=== PATIENT | female | born 1995 | race Caucasian/White ===

== ENCOUNTER → 2019-07-17 10:05 | Outpatient (BNVA) | payer OTHER, SELFPAY | PROVIDERS: Family Provider Family Medicine; PCP Family Medicine; Visit Provider Nurse Practitioner Women's Health | DX: Z11.3 Encounter for screening for infections with a predominantly sexual mode of transmission (principal); A54.9 Gonococcal infection, unspecified; Z31.9 Encounter for procreative management, unspecified | CPT/HCPCS: 87491; 87591; 87661 ==

== ENCOUNTER → 2019-10-01 08:51 | Outpatient (BNVA) | payer OTHER, SELFPAY | PROVIDERS: Family Provider Family Medicine; PCP Family Medicine | DX: Z32.01 Encounter for pregnancy test, result positive (principal) | CPT/HCPCS: 81025 ==

== ENCOUNTER 2019-10-15 10:50 | Emergency (ER) | payer OTHER, SELFPAY ==
[2019-10-15] VITALS (7 sets, daily range): BP systolic 96–125; BP diastolic 40–63; PULSE 60–82; RESP 16–18; TEMP 37.2; O2SAT 98–100; BMI 19.3
--- NOTE | 2019-10-15 11:39 | W.ED.DIZZY ---
HPI - Dizziness General: Chief Complaint: Dizziness Stated Complaint: DIZZY N/V Time Seen by Provider: 10/15/19 11:30 History of Present Illness: HPI Narrative: Patient is a 7-week 24-year-old female that comes to the ED with dizziness, nausea/vomiting. Patient says she is been having nausea and vomiting for the past week. She is having trouble keeping food and fluids down. She denies any vaginal discharge or bleeding. She has some mild abdominal cramping but no other abdominal pain. She took a dose of promethazine this morning and after that she started getting dizzy. Denies any fever, chills, chest pain, shortness of breath, dysuria, hematuria or diarrhea. Patient does endorse some mild constipation. Associated symptoms: Reports nausea and vomiting; Denies chest pain, chills, headache(s), nasal congestion or palpitations Associated neuro symptoms: Deny numbness in extremities Review of Systems Const: Denies: fever(s), chills or fatigue Eyes: Denies: change in vision or eye discomfort ENMT: Denies: throat pain, odynophagia, nasal discharge or nasal congestion Card: Denies: chest pain, palpitations, edema, swelling of feet/ankles, dyspnea on exertion or orthopnea Resp: Denies: dyspnea, productive cough or non-productive cough GI: Reports: nausea, vomiting and constipation; Denies: abdominal pain, diarrhea or hematochezia : Reports: pelvic pain (mild cramps); Denies: flank pain, dysuria or hematuria Musc: Denies: neck pain, back pain or extremity swelling Skin/Breast: Denies: rash or new lesions Neuro: Reports: dizziness; Denies: headache(s), numbness in extremities or weakness in extremities [facility] ED PFSH: Medical History Gonorrhea No pertinent past medical history Surgical History H/O dilation and curettage (05/12/17) Missed with retained products after Cytotec. D&C performed by Dr. Pastrana at [facility] in [place], [place]. Pathology--> products of conception Family History Grandmother Diabetes Maternal grandmother Denies family history of Colon cancer Ovarian cancer Heart disease Hyperlipidemia Breast cancer Family history of thyroid problem Hypertension Uterine cancer Stroke Social History Smoking and tobacco status: never smoked Alcohol intake: never Female Reproductive History: Date of last menstrual period: 08/26/19 Physical Exam Const: COMMON NORMALS: patient oriented x3, healthy appearing and alert GENERAL APPEARANCE: cooperative and comfortable HENMT: COMMON NORMALS: normocephalic HEAD & SCALP: normocephalic MOUTH: Normal oral and palatal mucosa present THROAT: posterior oropharynx normal and uvula midline Eye: COMMON NORMALS: Equal, round and reactive pupils present PUPIL: Yes Equal, round and reactive pupils present Neck/C-Spine: COMMON NORMALS: supple GENERAL: Yes normal visual inspection Resp: COMMON NORMALS: normal respiratory effort, No retractions, No use of accessory muscles and clear to auscultation bilaterally AUSCULTATION: clear to auscultation bilaterally Cardio: COMMON NORMALS: regular rate, regular rhythm, S1 normal heart sound present, S2 normal heart sound present, No gallops present (Cardio), No clicks present (Cardio), No murmurs present (Cardio) and Peripheral pulses 2+ throughout RATE: regular rate RHYTHM: regular rhythm HEART SOUNDS: S1 normal heart sound present and S2 normal heart sound present PERIPHERAL PULSES: Peripheral pulses 2+ throughout GI: COMMON NORMALS: Normal to inspection, nondistended, normoactive bowel sounds present, Soft to palpation, non-tender and no masses PALPATION: Yes Soft to palpation : COMMON NORMALS: Yes no CVA tenderness BLADDER/KIDNEY EXAM: Yes no CVA tenderness Back/Pelvis: COMMON NORMALS: no CVA tenderness Extremity: COMMON NORMALS: normal to inspection and no pedal edema Neuro: COMMON NORMALS: patient oriented x3 and moves all extremities SENSORIUM/ORIENTATION: Yes alert Skin: COMMON NORMALS: no rashes or lesions noted GENERAL SKIN EXAM: no rashes or lesions noted and dry skin Course Vital Signs: Vital signs: Vital Signs Temperature 98.9 F 10/15/19 15:31 Pulse Rate 68 10/15/19 15:31 Respiratory Rate 18 10/15/19 15:31 Blood Pressure 108/51 10/15/19 15:31 Pulse Oximetry 100 10/15/19 15:31 MDM - Dizziness MDM Narrative: Medical decision making narrative: pt is 7 weeks and comes to the ED with dizziness, n/v. Denies any vaginal bleeding or discharge, dysuria or hematuria. Pt was given 3L of fluid, meclizine and 2 doses of zofran and symptoms greatly improved and she was able to eat and drink while here in the ED. CBC, CMP, UA were unremarkable. HCG quant 59,842 which is in normal range for gestation. US pelvis was performed and IUP seen that had normal heart rate and measured at 6 1/2 week gestation. Pt was discharged and told to follow up with OB at next appointment. She was given a prescription for zofran to help with nausea. return if symptoms worsen. Lab Data: Attestation: I reviewed the patient's lab results. Labs: Lab Results 10/15/19 10/15/19 10/15/19 Range/Units 12:10 12:20 12:34 WBC 8.4 (4.0-10.0) 10^3/ uL RBC 4.24 (4.1-5.3) 10^6/u L Hgb 12.8 (11.5-15.3) g/dL Hct 37.2 (37.0-47.0) % MCV 87.7 (81-99) fL MCH 30.2 (28.0-34.0) pg MCHC 34.4 (30.0-36.0) g/dL RDW 11.9 L (12.1-15.1) % Plt Count 194 (130-400) 10^3/c mm MPV 8.7 (7.4-10.4) fL Neut % (Auto) 62.4 % Lymph % (Auto) 25.6 % [place] % (Auto) 10.8 % Eos % (Auto) 0.4 % Baso % (Auto) 0.6 % Neut # (Auto) 5.25 (1.8-7.7) 10^3/u L Lymph # (Auto) 2.2 (0.8-4.8) 10^3/u L [place] # (Auto) 0.9 (0.2-0.9) 10^3/u L Eos # (Auto) 0.0 (0.0-0.8) 10^3/u L Baso # (Auto) 0.1 (0.0-0.1) 10^3/u L Nucleated RBC % (a uto) 0 % Nucleated RBCs # 0.0 /100WBC Sodium 134 L (136-145) mmol/L Potassium 3.4 L (3.5-5.1) mmol/L Chloride 99 (98-107) mmol/L Carbon Dioxide 21 L (22-29) mmol/L Anion Gap 17.4 (5-19) BUN 9 (6-20) mg/dL Creatinine 0.4 L (0.5-0.9) mg/dL GFR Calculation 197.8 H (90-130) mL/min Glucose 89 (65-115) mg/dL Calculated Osmolal ity 273 L (285-295) mOsm/k g Calcium 10.4 (8.5-10.5) mg/dL Total Bilirubin 1.5 H (0.15-1.2) mg/dL AST 17 (0-32) U/L ALT 10 (0-33) U/L Alkaline Phosphata se 54 (35-105) IU/L Total Protein 8.2 (6.6-8.7) g/dL Albumin 4.9 (3.5-5.2) g/dL Globulin 3.3 (1.3-4.6) g/dL Ser , [place] 10502.00 mIU/mL Urine Color Yellow (Yellow) Urine Appearance Clear (CLEAR) Urine pH 8 H (5-7) Ur Specific Gravit y 1.015 (1.005-1.030) Urine Protein Neg (Negative) Urine Glucose (UA) Norm (Normal) Urine Ketones 1+ H (Negative) Urine Blood Neg (Negative) Urine Nitrate Negative (Negative) Urine Bilirubin Neg (NEGATIVE) Urine Urobilinogen Neg (Negative) mg/dL Ur Leukocyte Meena ase Negative (Negative) Urine RBC None (0-2) /hpf Urine WBC None (0-5) /hpf Ur Squamous Epith Cells 0-4 H (0-5) Urine Bacteria Trace (NONE) Imaging Data^: US OB: Attestation: I personally reviewed and interpreted this imaging study as follows: Radiologist's impression: Ultrasound of the pelvis performed?prelim report showed intrauterine with heartbeat and measuring at approximately 6 and 1/2 weeks gestation. Discharge Plan Discharge Patient Disposition: Home, Self-Care Clinical Impression: Nausea and vomiting during prior to 22 weeks gestation Condition: Stable Prescriptions: New ondansetron 4 mg tablet,disintegrating 4 mg PO Q8H Qty: 30 RF: 0 No Action promethazine 25 mg tablet 25 mg PO Q6H PRN (Reason: nausea and vomiting) Qty: 30 RF: 0 28 mg iron- 800 mcg Tablet 1 tab PO DAILY RF: 0 Gummies 400 mcg-35 mg- 25 mg-5 mg Tablet,Chewable 2 tab PO DAILY RF: 0 Discharge Orders: Discharge Order (Routine); Ordered 10/15/19 Ordered By: Berry Augustine Referrals: Marialuisa Talavera MD [Primary Care Provider] - Discharge Diet: Regular Discharge Activity: Increase activity as tolerated Activity Restrictions/Additional Instructions: Follow-up with medical provider as directed. Take medications as prescribed. Return to the ER or your medical provider if condition worsens. Please read and understand discharge instructions. If any questions, please ask. Discharge Date/Time: 10/15/19 15:31 Coding Level of Care Code ED Care Specialist for Sj Fwd Exam Comprehensive
[2019-10-15] MEDS: sodium chloride 0.9% 1,000 ML 999 ML IV ×2 (12:22→13:17)
[2019-10-15] MEDS: ondansetron 2 mg/ML SDV 2 mL 4 MG IVP ×2 (12:23→13:52)
[2019-10-15 12:40] LABS: Basophils # 0.1 10^3/uL (0.0-0.1); Basophils % 0.6 %; Eosinophils % 0.4 %; Hematocrit 37.2 % (37.0-47.0); Hemoglobin 12.8 g/dL (11.5-15.3); Lymphocytes # 2.2 10^3/uL (0.8-4.8); Lymphocytes % 25.6 %; Mean Corpuscular HGB Conc 34.4 g/dL (30.0-36.0); Mean Corpuscular Hemoglobin 30.2 pg (28.0-34.0); Mean Corpuscular Volume 87.7 fL (81-99); Mean Platelet Volume 8.7 fL (7.4-10.4); Monocytes # 0.9 10^3/uL (0.2-0.9); Monocytes % 10.8 %; Neutrophils # 5.25 10^3/uL (1.8-7.7); Neutrophils % 62.4 %; Nucleated Red Blood Cells % 0 %; Platelet Count 194 10^3/cmm (130-400); Red Blood Count 4.24 10^6/uL (4.1-5.3); Red Cell Distribution Width 11.9 % (12.1-15.1); White Blood Count 8.4 10^3/uL (4.0-10.0)
[2019-10-15 12:43] LABS: Bilirubin Urine Neg (NEGATIVE); Blood Urine Neg (Negative); Glucose Urine UA Norm (Normal); Ketones Urine 1+ (Negative); Nitrate Urine Negative (Negative); Protein Urine Neg (Negative); Specific Gravity, Urine 1.015 (1.005-1.030); Urine Appearance Clear (CLEAR); Urine Color Yellow (Yellow); pH Urine 8 (5-7)
[2019-10-15 12:44] LABS: Add Urine Culture? No; Bacteria Urine TRACE; Leukocyte Esterase Urine Negative (Negative); Squamous Epithelial Cell Urine 0-4 (0-5); Urobilinogen Urine Neg (Negative)
[2019-10-15 13:03] LABS: Alanine Aminotransferase 10 U/L (0-33); Albumin Level 4.9 g/dL (3.5-5.2); Alkaline Phosphatase 54 IU/L (35-105); Aspartate Amino Transferase 17 U/L (0-32); Blood Urea Nitrogen 9 mg/dL (6-20); Calcium 10.4 mg/dL (8.5-10.5); Carbon Dioxide 21 mmol/L (22-29); Chloride 99 mmol/L (98-107); Globulin 3.3 g/dL (1.3-4.6); Glomerular Filtration Rate 197.8 mL/min (90-130); Glucose 89 mg/dL (65-115); Osmolality Calculated 273 mOsm/kg (285-295); Sodium 134 mmol/L (136-145); Total Bilirubin 1.5 mg/dL (0.15-1.2); Total Protein 8.2 g/dL (6.6-8.7)
[2019-10-15 13:07] LABS: Anion Gap 17.4 (5-19); Potassium 3.4 mmol/L (3.5-5.1)
[2019-10-15] MEDS: meclizine 25 mg tablet PO (13:18)
--- NOTE | 2019-10-15 14:21 | US_ITS ---
WS: [id number] ULTRASOUND EARLY TECHNIQUE: Transabdominal sonography of the pelvis was performed. Followed by transvaginal sonography to better evaluate the uterus and ovaries. CLINICAL INFORMATION: 7 weeks with n/v and cramping Beta hCG: Unknown. COMPARISON: None. FINDINGS: UTERUS AND GESTATIONAL SAC Single intrauterine . Visualized cardiac activity. Yolk sac is present. No fluid in the cul- de-sac. heart rate 120 bpm [place]-rump length 5.4 mm Estimated gestational age 6 weeks 2 days Estimated date of delivery 3 OVARIES Right ovary: Normal. Left ovary: Normal. FREE FLUID None. 2. Estimated gestational age: 6 weeks 2 days 3. Estimated delivery June 07, 2020 4. Normal ovaries and adnexa. US/US OB <= 14 weeks fetus [id number] IMPRESSION: 1. Single live intrauterine with pole.
--- NOTE | 2019-10-15 14:29 | PC.NURSE ---
Patient given a sandwich and a Sprite per provider orders for a PO challenge, patient instructed to notify nurse if N/V returns. Patient agreeable at this time.
== END 2019-10-15 15:31 | disposition home or self-care (01) ==
PROVIDERS: Emergency Provider Physician Assistant; PCP Family Medicine
DX: O21.8 Other vomiting complicating pregnancy (principal); Z3A.01 Less than 8 weeks gestation of pregnancy
CPT/HCPCS: 12345; 36415; 76801; 80053; 81001; 84702; 85025; 96361; 96374; 96375; 96376; 99283; J2405; J7030; J8597

== ENCOUNTER → 2019-11-11 11:35 | Outpatient (BNVA) | payer OTHER, SELFPAY | PROVIDERS: PCP Family Medicine; Visit Provider Obstetrics & Gynecology | DX: Z34.81 Encounter for supervision of other normal pregnancy, first trimester (principal); O21.9 Vomiting of pregnancy, unspecified | CPT/HCPCS: 80053; 80307; 84315; 85027; 86592; 86762; 86803; 86850; 86900; 87340; 87806 ==

== ENCOUNTER → 2019-11-21 13:36 | Outpatient (BNVA) | payer OTHER, SELFPAY | PROVIDERS: PCP Family Medicine; Visit Provider Nurse Practitioner Women's Health | DX: O21.9 Vomiting of pregnancy, unspecified (principal); O26.849 Uterine size-date discrepancy, unspecified trimester; Z3A.12 12 weeks gestation of pregnancy | CPT/HCPCS: 84315; 87491; 87591; 87661 ==

== ENCOUNTER → 2020-01-15 10:19 | Outpatient (BNVA) | payer OTHER, MEDICAID, SELFPAY | PROVIDERS: PCP Family Medicine; Visit Provider Obstetrics & Gynecology | DX: Z34.92 Encounter for supervision of normal pregnancy, unspecified, second trimester (principal) | CPT/HCPCS: 76805 ==

== ENCOUNTER → 2020-03-11 15:34 | Outpatient (BNVA) | payer OTHER, MEDICAID, SELFPAY | PROVIDERS: PCP Family Medicine; Visit Provider Obstetrics & Gynecology | DX: Z34.82 Encounter for supervision of other normal pregnancy, second trimester (principal) | CPT/HCPCS: 82950; 84315; 85027 ==

== ENCOUNTER → 2020-03-16 00:01 | Outpatient (BNVA) | payer OTHER, MEDICAID, SELFPAY | PROVIDERS: PCP Family Medicine; Visit Provider Obstetrics & Gynecology | DX: Z34.83 Encounter for supervision of other normal pregnancy, third trimester (principal) | CPT/HCPCS: 82951; 82952 ==

== ENCOUNTER → 2020-04-21 07:58 | Outpatient (BNVA) | payer OTHER, MEDICAID, SELFPAY | PROVIDERS: PCP Family Medicine; Visit Provider Obstetrics & Gynecology | DX: Z34.83 Encounter for supervision of other normal pregnancy, third trimester | CPT/HCPCS: 83986; 84315 ==

== ENCOUNTER → 2020-05-07 14:50 | Outpatient (BNVA) | payer OTHER, MEDICAID, SELFPAY | PROVIDERS: PCP Family Medicine; Visit Provider Obstetrics & Gynecology | DX: O99.013 Anemia complicating pregnancy, third trimester (principal); Z3A.36 36 weeks gestation of pregnancy; D64.9 Anemia, unspecified | CPT/HCPCS: 84315; 87081 ==

== ENCOUNTER → 2020-05-25 10:46 | Outpatient (BNVA) | payer OTHER, MEDICAID, SELFPAY | PROVIDERS: PCP Family Medicine; Visit Provider Obstetrics & Gynecology | DX: Z34.83 Encounter for supervision of other normal pregnancy, third trimester (principal) | CPT/HCPCS: 87635 ==

== ENCOUNTER 2020-06-02 14:50 | Inpatient (IN) | payer OTHER, MEDICAID, SELFPAY ==
[2020-06-02] VITALS (26 sets, daily range): BP systolic 93–131; BP diastolic 50–104; PULSE 45–89; RESP 16–18; TEMP 36.6–37.2; BMI 24.7
--- NOTE | 2020-06-02 15:47 | PC.NURSE ---
IV STARTED IN LEFT FOREARM BY SADIA CASTANO RN,.
[2020-06-02] MEDS: miSOPROStol 100 mcg tablet 25 MCG VAGINAL (16:21)
[2020-06-02 17:05] LABS: Basophils % 0.3 %; Eosinophils % 0.5 %; Hematocrit 31.7 % (37.0-47.0); Lymphocytes # 1.5 10^3/uL (0.8-4.8); Lymphocytes % 19.6 %; Mean Corpuscular HGB Conc 34.7 g/dL (30.0-36.0); Mean Corpuscular Hemoglobin 29.6 pg (28.0-34.0); Mean Corpuscular Volume 85.2 fL (81-99); Mean Platelet Volume 9.3 fL (7.4-10.4); Monocytes # 0.9 10^3/uL (0.2-0.9); Monocytes % 11.3 %; Neutrophils # 5.29 10^3/uL (1.8-7.7); Neutrophils % 67.5 %; Nucleated Red Blood Cells % 0 %; Platelet Count 158 10^3/cmm (130-400); Red Blood Count 3.72 10^6/uL (4.1-5.3); Red Cell Distribution Width 12.8 % (12.1-15.1); White Blood Count 7.8 10^3/uL (4.0-10.0)
[2020-06-02] MEDS: lactated ringers 1,000 ML 999 ML (18:33)
[2020-06-02] MEDS: fentaNYL 50 mcg/mL INJ 2mL IV (20:31)
[2020-06-02] MEDS: morphine 4 mg/mL SDV 1 mL 8 MG IM (23:47)
[2020-06-02] MEDS: promethazine 25 mg/mL SDV 1 mL IM (23:49)
[2020-06-03] VITALS (74 sets, daily range): BP systolic 90–147; BP diastolic 47–87; PULSE 45–88; RESP 16–18; TEMP 36.1–37.2; O2SAT 96–100
[2020-06-03] MEDS: dextrose 5%-lactated ringers 1,000 ML 125 ML IV ×2 (08:57→19:40)
--- NOTE | 2020-06-03 08:57 | P.HP_ITS ---
Providers/Chief Complaint Admitting Physician: Pascual Shoemaker MD Primary PLASTERER ROUGH: Pascual Shoemaker MD Primary Care Provider: Marialuisa Talavera MD Chief Complaint: INDUCTION OF LABOR FOR POST DATES HPI PLASTERER ROUGH History of Present Illness Patient is a 24-year-old female, 2, para 0-0-1-0 with an LMP of 08/26/2019 and an EDC of 06/01/2020 based on LMP and consistent with a 20-week ultrasound, which places her at 40-2/7 weeks gestation today. She presented to labor and delivery in the afternoon of 06/02/2020 for Cytotec cervical ripening and induction of labor due to term . She received 1 dose of Cytotec and proceeded to contract regularly through the afternoon and into the evening. Contractions became strong enough to request pain medication. However, she did not make any significant cervical change. She continued to contract through the night and had morphine/Phenergan sleeper. This morning, she is still christina about every 2 to 4 minutes. However, she has still not made any significant cervical change. Patient reports contractions are not nearly as intense this morning as they were last night. She denies nausea or vomiting. She denies shortness of breath or chest pains. She denied vaginal bleeding. She denied leaking of fluid. She reports good movement. care has been mainly provided by Dr. Pascual Shoemaker at [facility]. Has Been Uncomplicated except for Anemia in the Third Trimester. LABS 11/11/2019 Blood type: A positive Antibody screen: Negative Intake CBC: WBC , Hgb , Hct , MCV , Plt. Rubella: Immune Hepatitis B surface antigen: Nonreactive Hepatitis C antibody: Nonreactive RPR: Nonreactive HIV: Nonreactive Urine drug screen: Negative Urine culture: Negative no growth 11/21/2019 Cystic fibrosis: declines 11/21/2019 Panorama: declines 11/21/2019 Gonorrhea: Negative Chlamydia: Negative Trichomonas: Negative Pap smear: 2018; normal 12/17/2019 Quad screen: declines 03/11/2020 28 week CBC: 8.8<10.6/30> 140 GCT: 166 03/16/2020: 3-hour GTT: 80, 97, 112, 109--all normal-not diabetic 05/07/2020 GBS: Negative OB ULTRASOUND LMP 08/26/2019 ---> EDC 06/01/2020 1. 10/15/2019 ---> 6-2/7 WG ---> EDC 06/07/2020. Performed at [facility] [place]. CRL 0.54 cm. FHR 128 bpm. 2. 11/26/2019 ---> 13-0/7 WG ---> EDC 06/02/2020. Performed at [facility]. CRL 6.8 cm. FHR 159 bpm. 3. 01/15/2020 ---> 20 3/7 WG ---> EDC 05/31/2020. EFW 13 oz. (366 g) 64%. Performed at [facility]. Consistent with dates. Normal anatomic survey. Female. Cephalic. FHR 142 bpm. Fundal posterior right lateral placenta without previa. Grade 1. Visually normal amniotic fluid volume. FILLER SHREDDER 5.7 cm. Cervix 5.7 cm. 4. 04/15/2020 ---> 34-6/7 WG ---> EDC 05/21/2020. EFW 5 lbs 7 oz (2473 g) 80%. Performed at [facility]. Consistent with dates. Female. Cephalic. FHR 144 bpm. Posterior, fundal placenta without previa. Placental grade 1. GUNNAR 14.2 cm. FILLER SHREDDER 6.1 cm. Present Details : 2 Para: 0 Date of Last Menstrual Period: 08/26/19 Calculated Date of Delivery: 06/01/20 Gestational Age Based on Last Menstrual Period: 40 Labs Rubella: Immune RPR: Negative GBS: Negative Review of Systems Const: Denies: fever(s) or chills Eyes: Denies: change in vision ENMT: Denies: throat pain or nasal congestion Card: Denies: chest pain or palpitations Resp: Denies: dyspnea, productive cough, non-productive cough or wheezing GI: Denies: abdominal pain, nausea, vomiting, diarrhea or constipation : Reports: urinary frequency; Denies: dysuria, vaginal bleeding, vaginal discharge or other (Leaking of fluid) Neuro: Denies: headache(s) or dizziness Medications/Allergies Home Medications Medication Instructions Recorded Confirmed Last Taken Type PNV no.[id number] 2 tab PO DAILY 10/15/19 06/02/20 10/13/19 History [ Gummies] ferrous sulfate 325 mg (65 mg 325 mg PO BID #300 tab 03/24/20 06/02/20 Unknown Rx iron) tablet,delayed release polyethylene glycol 3350 17 17 g PO DAILY PRN 05/28/20 06/02/20 Unknown History gram/dose oral powder Allergies Allergy/AdvReac Type Severity Reaction Status Date / Time No Known Allergies Allergy Verified 06/02/20 16:42 PFSH PLASTERER ROUGH PFSH: Medical History Gonorrhea Reports having been told at a [facility] that she had gonorrhea in 02/2019 Surgical History H/O dilation and curettage (05/12/17) Missed with retained products after Cytotec. D&C performed by Dr. Pasrtana at [facility] in [place], [place]. Pathology--> products of conception Family History Grandmother Diabetes Maternal grandmother Social History (Updated 06/03/20 @ 09:04 by Pascual Shoemaker MD) Smoking and tobacco status: never smoked Alcohol intake: never Substance/Drug Use: never Other Female Reproductive History: Hx Age of Menarche: 14 History History History 2 Term 0 Miscarriages/Ectopic 1 0 Living Children 0 Other History: 1--->Missed at 10 weeks gestation. Treated with Cytotec on 04/27 and 04/28/2017 and was thought to have completely passed . Presented to ER on 05/12/2017 with heavy bleeding and had D&C for retained products. Care JESSICA Calculator Estimated Delivery Date Method Current WG Current Estimate 06/01/20 LMP (Certain) 40w 2d Other Estimates 06/07/20 Ultrasound #1 39w 3d 06/02/20 Ultrasound #2 40w 1d Expected Delivery Route/Plan Vaginal Specific Issues/Plans * Anemia on iron Vitals/I&O/Wt Last Vital Signs Temp 97.9 F 06/02/20 17:04 Pulse 60 06/03/20 08:42 Resp 16 06/02/20 23:47 BP 101/52 06/03/20 08:42 06/02/20 06/03/20 06/03/20 22:59 06:59 14:59 Intake Total 1000 / 1000 Balance 1000 / 1000 Weight last 48 hrs Weight 158 lb Weight 158 lb Physical Exam Const: COMMON NORMALS: no acute distress, average body habitus, alert and well nourished GENERAL APPEARANCE: well developed ORIENTATION/CONSCIOUSNESS: Yes oriented to person, Yes oriented to place and Yes oriented to time Resp: COMMON NORMALS: normal respiratory effort and clear to auscultation bilaterally AUSCULTATION: clear to auscultation bilaterally Cardio: COMMON NORMALS: regular rate, regular rhythm, No gallops present (Cardio), No murmurs present (Cardio) and No rub (Cardio) RATE: regular rate RHYTHM: regular rhythm GI: COMMON NORMALS: Soft to palpation, non-tender, No hepatosplenomegaly present and no masses (Except for nontender gravid uterus) INSPECTION: Yes gravid abdomen AUSCULTATION: Yes normoactive bowel sounds PALPATION: Yes Soft to palpation, Yes No hepatosplenomegaly present and No Hernia present : OTHER: Cervix: 1 to 2 cm dilated and 80% effaced per nurse at 06:42 Extremity: COMMON NORMALS: no calf tenderness NARRATIVE EXTREMITY EXAM: Trace lower extremity edema. Neuro: SENSORIUM/ORIENTATION: Yes alert, Yes oriented to person, Yes oriented to place and Yes oriented to time Psych: COMMON NORMALS: normal affect MOOD & AFFECT: Yes euthymic mood Data : 06/02/20 15:15 Other data: monitoring: Baseline heart rate mid 130s with moderate variability. No decelerations noted. Contractions every 3 to 4 minutes. A&P Assessment and plan (1) Supervision of normal : Term at 40-2/7 weeks gestation. She has received 1 dose of Cytotec and proceeded to contract regularly. This morning she has made minimal change. We will start on low-dose cervical ripening Pitocin. Discussed with patient potential of increasing dosing later on this afternoon. Potential of stopping Pitocin this evening and restarting Cytotec was also discussed. Questions were answered. Patient agrees with this plan. Status: Acute Qualifiers: Normal : other normal Trimester: third trimester Qualified Code(s): Z34.83 - Encounter for supervision of other normal , third trimester Attestations Medical Necessity Statement*: Patient being induced for term . Coding Level of Care Code Acute [employer] And [employer]ounds Supervisor for Sj Landin Diagnoses Supervision of normal Z34.83 Normal : other normal Trimester: third trimester
[2020-06-03] MEDS: oxytocin 30 UNIT/500 ML BAG IV (09:24)
[2020-06-03] MEDS: lactated ringers 1,000 ML 999 ML (11:54)
[2020-06-03] MEDS: fentaNYL 50 mcg/mL INJ 2mL IV (12:40)
--- NOTE | 2020-06-03 13:24 | P.ANESUD_ITS ---
Pre-Anesthetic Update Pre-Anesthetic Assessment: Date of Surgery/Procedure: 06/03/20 Preop Anali gnosis: IUP Any changes to Pre-Anesthetic Assessment?: Yes Changes from Pre-Anesthetic Assessment: proceeding w/ d/t non-reassuring heat tones; ate sausage shortly before 0800 Labs Last 48hrs: Laboratory Results - last 48 hr 06/02/20 15:15 WBC 7.8 RBC 3.72 L Hgb 11.0 L Hct 31.7 L MCV 85.2 MCH 29.6 MCHC 34.7 RDW 12.8 Plt Count 158 MPV 9.3 Neut % (Auto) 67.5 Lymph % (Auto) 19.6 [place] % (Auto) 11.3 Eos % (Auto) 0.5 Baso % (Auto) 0.3 Neut # (Auto) 5.29 Lymph # (Auto) 1.5 [place] # (Auto) 0.9 Eos # (Auto) 0.0 Baso # (Auto) 0.0 Nucleated RBC % (a uto) 0 Nucleated RBCs # 0.0 Vitals: Temperature 97.7 F 06/03/20 10:03 Pulse Rate 82 06/03/20 13:21 Respiratory Rate 18 06/03/20 12:40 Respiratory Effort Non-Labored 06/03/20 12:40 Respiratory Depth Normal 06/03/20 12:40 Respiratory Patter n 06/03/20 12:40 Blood Pressure 140/84 06/03/20 13:21 Pulse Oximetry 98 06/03/20 13:21 Oxygen Delivery Me thod 06/03/20 09:12 Exam: Pre-Anes Outpt Exam: alert, oriented x 3, clear to auscultation bilaterally and regular rate & rhythm Cardiac Studies: No Data to Display
[2020-06-03] MEDS: lactated ringers 1,000 ML 999 ML IV (13:42)
[2020-06-03] MEDS: famotidine 20 mg/2 mL INJ IVP (13:43)
[2020-06-03] MEDS: citric acid-sodium citrate 30 mL UDC PO (13:43)
[2020-06-03] MEDS: metoclopramide 5 mg/mL SDV 2 mL 10 MG IVP (13:43)
--- NOTE | 2020-06-03 15:37 | P.OP_ITS ---
Operative Report Date of procedure: June 03, 2020 Pre-op Diagnosis: 1. Nonreassuring heart tones 2. Term at 40-2/7 weeks gestation Post-op Diagnosis: 1. Nonreassuring heart tones - delivered 2. Term at 40-2/7 weeks gestation - delivered 3. Viable female Procedure Done: Primary low transverse section Specimens removed/disposition: Placenta Surgeon: Pascual Shoemaker Width Stripper: None Anesthesia: Other (Spinal) Estimated blood loss (mL): 400 Complications: None Findings: 1. Viable female weighing 7 lbs 4 oz (3410 g) with a length of 21 inches and Apgars of 8 at 1 minute and 9 at 5 minutes. 2. Normal-appearing uterus, tubes, and ovaries. Brief History: Patient is a 24-year-old female, 2, para 0-0-1-0 with an LMP of 08/26/2019 and an EDC of 06/01/2020 based on LMP and consistent with a 20-week ultrasound, which placed her at 40-2/7 weeks gestation today. She had presented to L&D in the afternoon of 06/02/2020 for Cytotec cervical ripening and induction of labor due to term . She received 1 dose of Cytotec and proceeded to contract through the rest the evening and night. This morning, she was still christina regularly. However, she had made minimal cervical change since admission. As a result, low-dose Pitocin was started for cervical ripening. Pitocin had increased to 4 milliunits before she developed recurrent variable decelerations in the late position. Pitocin dose was cut in half, oxygen placed, fluid bolus started, and position changes made. These resolved. However, approximately a half an hour later she had recurrent decelerations again resulting in stopping of the Pitocin completely. Since she was still quite distant from delivery, only being 1 to 2 cm dilated, decision was made to go ahead and proceed with a primary section. Procedure: Patient was taken to the operating room where spinal anesthesia was obtained. She was prepped and draped in the usual sterile fashion in a dorsal supine position with a leftward tilt. Goldstein catheter and sequential compression boots had been placed prior to starting the case. A Pfannenstiel skin incision was made with a knife and carried down to the underlying fascia with the knife. Fascia was incised in the midline with the knife and extended laterally with [place] scissors. Superior aspect of the fascia was grasped with Cate clamps, elevated, and sharply and bluntly dissected. The inferior aspect of the fascia was grasped with Cate clamps, elevated, and sharply and bluntly dissected. The rectus muscles were in the midline. Peritoneum was sharply entered. Peritoneal incision was extended both superiorly and inferiorly with good visualization of the bladder. Bladder blade was inserted. The vesicouterine peritoneum was tented up and sharply entered. It was extended laterally and the bladder flap was created digitally. Bladder blade was reinserted. A transverse incision was made with the knife in the lower uterine segment. Clear fluid was obtained upon entry into the uterine cavity. The 's head was delivered and no nuchal cords were noted. The rest of the infant delivered atraumatically. Nose and mouth were suctioned with bulb suction. Cord was clamped and cut and the was handed off to Dr. Daugherty and the waiting nurses. Cord blood was obtained. Placenta was delivered via uterine massage. Patient received 20 units of Pitocin in the IV fluids. The uterus was exteriorized and cleared of clots and debris. The uterine incision was closed in a running locking fashion using 0 Vicryl suture. The i ncision was imbricated using 0 Vicryl suture in a horizontal mattress fashion. The incision was inspected and noted to be hemostatic. Posterior cul-de-sac was thoroughly irrigated and cleared of clots and blood. The uterus was returned to the abdomen. The uterine incision was irrigated and noted to be hemostatic. The gutters were cleared of clots and blood. The rectus muscles and peritoneum were reapproximated in the midline using interrupted stitches of 2-0 Vicryl suture. The muscle layer was irrigated and noted to be hemostatic. The fascia was reapproximated using 0 Vicryl suture in a running fashion. The subcutaneous layer was irrigated and brought to hemostasis using electrocautery. It was reapproximated using 3-0 plain suture in an interrupted fashion. Skin was reapproximated using 4-0 Vicryl suture in a subcuticular fashion. Steri-Strips were applied. Patient tolerated the procedures well. Sponge, needle, and instrument counts were correct. DRAINS: Goldstein catheter POSTOPERATIVE STATUS: The patient was left to recover in satisfactory condition
--- NOTE | 2020-06-03 17:00 | ANE.PACU2 ---
Inpatient post-anesthesia follow up: Airway intact: Yes Vital signs: Temperature 98.1 F Pulse Rate 75 Respiratory Rate 18 Blood Pressure 119/70 Pulse Oximetry 98 Oxygen Delivery Me thod Room Air Oxygen Flow Rate Fraction of Inspir ed Oxygen Hydration adequate: Yes Nausea and vomiting: No Pain level: 1 Mental status: Baseline
[2020-06-03] MEDS: ferrous sulfate EC 325 mg Tablet PO (18:32)
[2020-06-03] MEDS: docusate sodium 100 mg Capsule PO (18:32)
[2020-06-03] MEDS: ketorolac 30 mg/mL INJ IVP (19:40)
[2020-06-03] MEDS: oxyCODONE 5 mg IR Tab/Cap PO (20:47)
[2020-06-03] MEDS: diphenhydrAMINE 50 mg/mL SDV 1mL 25 MG IVP (23:58)
[2020-06-04 00:28] VITALS: BP 109/60; PULSE 61; RESP 15; TEMP 36.8
[2020-06-04 02:00] VITALS: BP 131/79; PULSE 62; RESP 15; TEMP 36.9
[2020-06-04] MEDS: ketorolac 30 mg/mL INJ IVP (02:04)
[2020-06-04] MEDS: acetaminophen 325 mg Tablet 650 MG PO (02:05)
[2020-06-04 04:10] LABS: Hematocrit 25.8 % (37.0-47.0); Hemoglobin 8.6 g/dL (11.5-15.3); Mean Corpuscular HGB Conc 33.3 g/dL (30.0-36.0); Mean Corpuscular Hemoglobin 28.9 pg (28.0-34.0); Mean Corpuscular Volume 86.6 fL (81-99); Mean Platelet Volume 9.3 fL (7.4-10.4); Platelet Count 106 10^3/cmm (130-400); Red Blood Count 2.98 10^6/uL (4.1-5.3); Red Cell Distribution Width 12.5 % (12.1-15.1); White Blood Count 7.8 10^3/uL (4.0-10.0)
[2020-06-04 06:00] VITALS: BP 119/70; PULSE 75; RESP 18; TEMP 36.7; O2SAT 98
--- NOTE | 2020-06-04 08:15 | PM.PN ---
Subjective Subjective: Interval history: Reports doing well. States pain is been well controlled. Denies lightheadedness or dizziness with ambulation. Denied shortness of breath or chest pains. Tolerating regular diet this morning for breakfast. Reports passing flatus. States bleeding has slowed. Reports Goldstein catheter was removed this morning. Vitals/I&O/Wt Last Vital Signs Temp 98.1 F 06/04/20 06:00 Pulse 75 06/04/20 06:00 Resp 18 06/04/20 06:00 BP 119/70 06/04/20 06:00 Pulse Ox 98 06/04/20 06:00 06/03/20 06/04/20 06/04/20 22:59 06:59 14:59 Intake Total 2150.267 / 2161.000 Output Total 425 / 425 850 / 1275 Balance 1725.267 / 1736.000 -850 / 886.000 Weight last 48 hrs Weight 158 lb Weight 158 lb Physical Exam Const: COMMON NORMALS: no acute distress, average body habitus, alert and well nourished GENERAL APPEARANCE: well developed ORIENTATION/CONSCIOUSNESS: Yes oriented to person, Yes oriented to place and Yes oriented to time Resp: COMMON NORMALS: normal respiratory effort and clear to auscultation bilaterally AUSCULTATION: clear to auscultation bilaterally Cardio: COMMON NORMALS: regular rate, regular rhythm, No gallops present (Cardio) and No rub (Cardio) RATE: regular rate RHYTHM: regular rhythm GI: COMMON NORMALS: Soft to palpation, No hepatosplenomegaly present and no masses (Except for uterus) INSPECTION: Yes incision (Dressing dry) AUSCULTATION: Yes normoactive bowel sounds PALPATION: Yes Soft to palpation, Yes Tenderness to palpation present (GI) (Tender in the lower abdomen), Yes No hepatosplenomegaly present and No Hernia present : EXTERNAL FEMALE EXAM: No Hernia present Extremity: COMMON NORMALS: no calf tenderness NARRATIVE EXTREMITY EXAM: 1+ lower extremity edema bilaterally Neuro: SENSORIUM/ORIENTATION: Yes alert, Yes oriented to person, Yes oriented to place and Yes oriented to time Psych: COMMON NORMALS: normal affect MOOD & AFFECT: Yes euthymic mood Urinary Catheter Management^: Goldstein: Cath Placed During This Visit: yes, but has since been removed by the nurse Reason for Continuing Indwelling Catheter: Accurate Measurement of Urinary Output in Critically Ill Patients Urinary Catheter Date of Insertion: 06/03/20 Urinary Catheter Time of Insertion: 14:25 Date Urinary Catheter Removed: 06/04/20 Time Urinary Catheter Discontinued: 04:00 Data : 06/04/20 04:00 A&P Assessment and plan (1) Non-reassuring heart tones, delivered, current hospitalization: Postoperative day 1, status post primary section Patient is doing well. Will increase activities today. May shower. Diet was advanced this morning. Pain is been well controlled with Duramorph overall. Discussed with patient that she may have more pain as the day goes on from the Duramorph wearing off. Use of oral medications discussed. Status: Acute Attestations Medical Necessity Statement*: Postoperative day 1 status post section, approximately 12 hours after surgery. 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
[2020-06-04] MEDS: prenatal vitamin Capsule 1 CAP PO (09:34)
[2020-06-04] MEDS: docusate sodium 100 mg Capsule PO ×2 (09:35→17:32)
[2020-06-04] MEDS: ferrous sulfate EC 325 mg Tablet PO ×2 (09:35→17:32)
[2020-06-04] MEDS: ibuprofen 800 mg tablet PO ×3 (09:35→21:02)
[2020-06-04 09:36] VITALS: BP 123/83; PULSE 55; RESP 16; TEMP 36.9
[2020-06-04] MEDS: HYDROcodone-acetaminophen 5-325 mg Tablet PO ×2 (13:04→18:06)
[2020-06-04 17:30] VITALS: BP 125/78; PULSE 64; RESP 15; TEMP 36.6
[2020-06-04 21:05] VITALS: BP 120/73; PULSE 69; RESP 16; O2SAT 97
[2020-06-05] MEDS: HYDROcodone-acetaminophen 5-325 mg Tablet PO ×2 (02:30→08:17)
[2020-06-05 04:14] VITALS: BP 114/69; PULSE 74; RESP 16; O2SAT 97
--- NOTE | 2020-06-05 07:25 | P.DS_ITS ---
Discharge Providers HOUSE CARPENTER Date of Admission: 06/02/20 14:50 Date of Discharge: 06/19/20 Attending Provider at Admission: Pascual Shoemaker MD Attending Provider at Discharge: Pascual Shoemaker MD Primary HOUSE CARPENTER: Pascual Shoemaker MD Primary Care Provider: Marialuisa Talavera MD Diagnoses at Discharge Discharge Diagnosis (1) Non-reassuring heart tones, delivered, current hospitalization: Status: Resolved (2) Anemia-delivered w/ complication: Status: Acute (3) Acute blood loss anemia: Status: Acute Reason for Visit Reason for Visit: INDUCTION OF LABOR FOR POST DATES Hospital Course Hospital Course Patient is a 24-year-old female 2, para 0-0-1-0 with an LMP of 08/26/2019 and an EDC of 06/01/2020 based on LMP and consistent with a 20-week ultrasound. This placed her at 40-1/7 weeks gestation at the time of admission. She presented to labor and delivery in the afternoon of 06/02/2020 for Cytotec cervical ripening and induction of labor. She received 1 Cytotec and proceeded to contract through the evening and night. The following morning she was still christina regularly but had made minimal cervical change. As a result, low-dose Pitocin was started for cervical ripening. Despite the Pitocin never making it over 4 milliunits/min, she developed recurrent decelerations. Since she was still distant from delivery, only 1 to 2 cm dilated, discussion was had with the patient and her partner about possibly proceeding to a section which she wished to go ahead and do. She had a primary low transverse section performed on 06/03/2020 for nonreassuring heart tones with the delivery of a viable female infant weighing 7 pounds 4 ounces (3410 g) with a length of 21 inches and Apgars of 8 at 1 minute and 9 at 5 minutes. Mother and both did well following surgery. She received Duramorph in the spinal for pain management following surgery. Day 1 Patient was reporting doing well. Her pain was well controlled with the Duramorph. She was ambulating without lightheadedness or dizziness. She denied shortness of breath or chest pains. She was tolerating a regular diet that morning without nausea or vomiting. She was passing flatus. Her bleeding had slowed. She was afebrile with stable vital signs. Her activity was increased through the day. She was switched to oral pain medication later in the day. Patient had been found to be anemic following surgery with an H&H of 8.6 and 25.8. However, she was asymptomatic with this. Day 2 Patient reports doing well. States pain has been well controlled. Reports tolerating a regular diet without nausea or vomiting. Denies shortness of breath or chest pain. Denies problems with urination. Reports passing flatus and has been having loose bowel movements. Reports bleeding has slowed. States is bottlefeeding. Physical Exam: See below Plan Discharge to home. Discharge instructions discussed with patient. Patient was instructed to take iron tablets daily after going home from the hospital. Patient to follow-up in office in 2 and 6 weeks. Information Peripartum Data: Delivery Method: complicati ons: other (Postoperative anemia from acute blood loss) [place]: 1: Gender: Female Disposition of : home Additional Information: 7 lbs 4 oz (3410 g) with a length of 21 inches and Apgars of 8 at 1 minute and 9 at 5 minutes. Physical Exam Const: COMMON NORMALS: no acute distress, average body habitus, alert and well nourished GENERAL APPEARANCE: well developed ORIENTATION/CONSCIOUSNESS: Yes oriented to person, Yes oriented to place and Yes oriented to time GI: COMMON NORMALS: Soft to palpation, No hepatosplenomegaly present and no masses (Except for uterus) INSPECTION: Yes incision (Well approximated with steri-strips present.) AUSCULTATION: Yes normoactive bowel sounds PALPATION: Yes Soft to palpation, Yes Tenderness to palpation present (GI) (Lower abdominal tenderness), Yes No hepatosplenomegaly present and No Hernia present : EXTERNAL FEMALE EXAM: No Hernia present Extremity: COMMON NORMALS: no calf tenderness NARRATIVE EXTREMITY EXAM: T race to 1+ lower extremity edema bilaterally Neuro: SENSORIUM/ORIENTATION: Yes alert, Yes oriented to person, Yes oriented to place and Yes oriented to time Psych: COMMON NORMALS: normal affect MOOD & AFFECT: Yes euthymic mood Urinary Catheter Management^: Goldstein: Cath Placed During This Visit: yes, but has since been removed by the nurse Reason for Continuing Indwelling Catheter: Accurate Measurement of Urinary Output in Critically Ill Patients Urinary Catheter Date of Insertion: 06/03/20 Urinary Catheter Time of Insertion: 14:25 Date Urinary Catheter Removed: 06/04/20 Time Urinary Catheter Discontinued: 04:00 Discharge Data Data Completed and Pendin06/02/2020: WBC 7.8, hemoglobin 11.0, hematocrit 31.7, platelet 158,000 06/04/2020: WBC 7.8, hemoglobin 8.6, hematocrit 25.8, platelet 106,000 Vitals: Last Vital Signs Temp 97.8 F 06/04/20 17:30 Pulse 74 06/05/20 04:14 Resp 16 06/05/20 04:14 BP 114/69 06/05/20 04:14 Pulse Ox 97 06/05/20 04:14 Discharge Plan Discharge Patient Disposition: Home Condition: Stable Prescriptions: New ibuprofen 800 mg Tablet 800 mg PO TID PRN (Reason: pain) Qty: 30 RF: 0 Continued Gummies 400 mcg-35 mg- 25 mg-5 mg Tablet,Chewable 2 tab PO DAILY RF: 0 Changed ferrous sulfate 325 mg (65 mg iron) tablet,delayed release (DR/EC) 325 mg PO DAILY Qty: 300 RF: 0 No Action docusate sodium [Dulcolax Stool Softener (dss)] 100 mg capsule 100 mg PO BID RF: 0 norgestimate-ethinyl estradiol [Sprintec (28)] 0.25-35 mg-mcg tablet 1 tab PO DAILY Qty: 84 RF: 3 Discharge Orders: Discharge Order (Routine); Ordered 06/05/20 Ordered By: Pascual Shoemaker Referrals: Pascual Shoemaker MD [Physician] - 06/18/20 10:30 am ( exam in 6 weeks is on 07.16.20 at 9:00AM) Discharge Diet: Regular Discharge Activity: Limit activity as instructed Patient Instructions: Pre-eclampsia and Eclampsia (DC), Bleeding (DC), OB WHC, OB Discharge Report, OB Food/Drug Interaction Guide, OB Home Care, OB Proud Parent Packet Discharge Attestations HOUSE CARPENTER Time Spent in Discharge Care*: less than 30 min Coding Level of Care Code Acute Brass Polisher for Chg Fwd Exam Expanded Problem Focused Diagnoses Non-reassuring heart tones, delivered, current hospitalization O76 Anemia-delivered w/ complication O99.03 Acute blood loss anemia D62
[2020-06-05] MEDS: docusate sodium 100 mg Capsule PO (08:17)
[2020-06-05] MEDS: prenatal vitamin Capsule 1 CAP PO (08:17)
[2020-06-05] MEDS: ferrous sulfate EC 325 mg Tablet PO (08:17)
[2020-06-05] MEDS: ibuprofen 800 mg tablet PO (08:18)
[2020-06-05 09:45] VITALS: BP 126/75; PULSE 72; RESP 17; TEMP 37; O2SAT 97
[2020-06-05 10:39] VITALS: BP 126/75; PULSE 72; RESP 17; TEMP 37; O2SAT 97
== END 2020-06-05 10:15 | disposition home or self-care (01) | DRG 788 ==
PROVIDERS: Admitting Provider Obstetrics & Gynecology; PCP Family Medicine; Visit Provider Obstetrics & Gynecology
PROC: 10D00Z1 Extraction of Products of Conception, Low, Open Approach (ICD-10-PCS; CPT 59514; principal; 2020-06-03 14:00)
DX: O48.0 Post-term pregnancy (principal); Z37.0 Single live birth; O99.02 Anemia complicating childbirth; D64.9 Anemia, unspecified; Z3A.40 40 weeks gestation of pregnancy; O76 Abnormality in fetal heart rate and rhythm complicating labor and delivery
CPT/HCPCS: 36415; 51702; 59025; 59409; 85025; 85027; 96372; 99211; J0690; J1200; J1885; J2270; J2274; J2405; J2550; J2765; J3010; J3490; J7030

== ENCOUNTER → 2020-07-16 10:25 | Outpatient (BNVA) | payer OTHER, MEDICAID, SELFPAY | PROVIDERS: PCP Family Medicine; Visit Provider Obstetrics & Gynecology | DX: O90.81 Anemia of the puerperium (principal) | CPT/HCPCS: 85027 ==

== ENCOUNTER 2021-02-05 12:32 | Outpatient (CLI) | payer OTHER, MEDICAID, SELFPAY ==
[2021-02-05 13:00] LABS: Basophils % 0.3 %; Eosinophils # 0.2 10^3/uL (0.0-0.8); Hematocrit 34.6 % (37.0-47.0); Hemoglobin 11.5 g/dL (11.5-15.3); Lymphocytes # 2.2 10^3/uL (0.8-4.8); Lymphocytes % 29.6 %; Mean Corpuscular HGB Conc 33.2 g/dL (30.0-36.0); Mean Corpuscular Hemoglobin 26.7 pg (28.0-34.0); Mean Corpuscular Volume 80.3 fl (81-99); Mean Platelet Volume 8.8 fL (7.4-10.4); Monocytes # 0.8 10^3/uL (0.2-0.9); Monocytes % 11.4 %; Neutrophils # 4.02 10^3/uL (1.8-7.7); Nucleated Red Blood Cells % 0 %; Platelet Count 238 10^3/cmm (130-400); Red Blood Count 4.31 10^6/uL (4.1-5.3); White Blood Count 7.3 10^3/uL (4.0-10.0)
== END 2021-02-05 12:33 | disposition home or self-care (01) ==
LOC: LAB 12:37
PROVIDERS: PCP Family Medicine; Visit Provider Nurse Practitioner Women's Health
DX: N92.6 Irregular menstruation, unspecified (principal); R10.9 Unspecified abdominal pain
CPT/HCPCS: 36415; 81025; 84702; 85025

== ENCOUNTER → 2021-02-08 10:19 | Outpatient (BNVA) | payer OTHER, MEDICAID, SELFPAY | PROVIDERS: PCP Family Medicine; Visit Provider Nurse Practitioner Women's Health | DX: R10.9 Unspecified abdominal pain (principal) | CPT/HCPCS: 84702 ==

== ENCOUNTER → 2021-03-10 12:16 | Outpatient (BNVA) | payer OTHER, MEDICAID, SELFPAY | PROVIDERS: PCP Family Medicine; Visit Provider Obstetrics & Gynecology | DX: Z34.90 Encounter for supervision of normal pregnancy, unspecified, unspecified trimester (principal) | CPT/HCPCS: 80307; 84315; 85027; 86592; 86762; 86803; 86850; 86900; 87086; 87340 ==

== ENCOUNTER → 2021-04-06 09:11 | Outpatient (BNVA) | payer OTHER, MEDICAID, SELFPAY | PROVIDERS: PCP Family Medicine; Visit Provider Obstetrics & Gynecology | DX: Z12.4 Encounter for screening for malignant neoplasm of cervix (principal) | CPT/HCPCS: 84315; 87491; 87591; 88175 ==

== ENCOUNTER → 2021-04-15 10:45 | Outpatient (BNVA) | payer OTHER, MEDICAID, SELFPAY | PROVIDERS: PCP Family Medicine; Visit Provider Nurse Practitioner Family | DX: Z20.822 Contact with and (suspected) exposure to COVID-19 (principal) | CPT/HCPCS: 87635 ==

== ENCOUNTER → 2021-05-31 15:07 | Outpatient (BNVA) | payer OTHER, MEDICAID, SELFPAY | PROVIDERS: PCP Family Medicine; Visit Provider Obstetrics & Gynecology | DX: O99.019 Anemia complicating pregnancy, unspecified trimester (principal); O36.60X0 Maternal care for excessive fetal growth, unspecified trimester, not applicable or unspecified; O34.219 Maternal care for unspecified type scar from previous cesarean delivery | CPT/HCPCS: 84315; 85027 ==

== ENCOUNTER → 2021-07-21 11:24 | Outpatient (BNVA) | payer OTHER, MEDICAID, SELFPAY | PROVIDERS: PCP Family Medicine; Visit Provider Obstetrics & Gynecology | DX: O99.013 Anemia complicating pregnancy, third trimester (principal) | CPT/HCPCS: 82950; 84315; 85027 ==

== ENCOUNTER → 2021-08-03 12:02 | Outpatient (BNVA) | payer OTHER, MEDICAID, SELFPAY | PROVIDERS: PCP Family Medicine; Visit Provider Obstetrics & Gynecology | DX: O36.60X0 Maternal care for excessive fetal growth, unspecified trimester, not applicable or unspecified (principal); O34.219 Maternal care for unspecified type scar from previous cesarean delivery; O99.019 Anemia complicating pregnancy, unspecified trimester | CPT/HCPCS: 82607; 82746; 83550; 84315; 84443; 85045 ==

== ENCOUNTER → 2021-08-09 12:57 | Day surgery (SDC) | payer OTHER, MEDICAID, SELFPAY ==
[2021-08-09 13:05] VITALS: BP 127/61; PULSE 88; RESP 18; TEMP 36.4; O2SAT 99
[2021-08-09] MEDS: iron sucrose 200 MG in sodium chloride 0.9% (100 ml) 100 ML 220 MG IV (13:17)
== END ==
PROVIDERS: PCP Family Medicine; Visit Provider Internal Medicine
DX: O99.019 Anemia complicating pregnancy, unspecified trimester (principal); Z3A.00 Weeks of gestation of pregnancy not specified
CPT/HCPCS: 96365; J1756

== ENCOUNTER 2021-08-15 23:34 | Outpatient (CLI) | payer OTHER, MEDICAID, SELFPAY ==
[2021-08-15 23:39] VITALS: BMI 24.3
[2021-08-15 23:45] VITALS: BP 122/67; PULSE 81; TEMP 35.9
[2021-08-16] VITALS: BP 116/64; PULSE 70
[2021-08-16 00:14] VITALS: BP 110/65; PULSE 77
[2021-08-16 00:22] LABS: Add Urine Culture? No; Bacteria Urine TRACE /hpf; Bilirubin Urine Neg (Negative); Blood Urine Neg (Negative); Glucose Urine UA Norm (Normal); Ketones Urine Negative (Negative); Leukocyte Esterase Urine Negative (Negative); Nitrate Urine Negative (Negative); Protein Urine Neg (Negative); RBC Urine 0-4 /hpf (0-2); Squamous Epithelial Cell Urine 0-4 /hpf (0-5); Sulfosalicylic Acid Urine Negative (Negative); Urine Appearance Clear (CLEAR); Urine Color Yellow (Yellow); Urobilinogen Urine Norm (Negative); WBC Urine 0-4 /hpf (0-5); pH Urine 8 (5-7)
[2021-08-16 00:29] VITALS: BP 115/69; PULSE 71
[2021-08-16] MEDS: acetaminophen 325 mg Tablet 650 MG PO (00:51)
[2021-08-16 00:52] VITALS: BP 115/69; PULSE 71; RESP 16
== END 2021-08-16 00:52 | disposition home or self-care (01) ==
LOC: OPOB 23:36 → OBGYN 23:37
PROVIDERS: PCP Family Medicine; Visit Provider Obstetrics & Gynecology
DX: O26.899 Other specified pregnancy related conditions, unspecified trimester (principal); Z3A.00 Weeks of gestation of pregnancy not specified
CPT/HCPCS: 59025; 81001; 99211

== ENCOUNTER → 2021-08-16 12:33 | Day surgery (SDC) | payer OTHER, MEDICAID, SELFPAY ==
[2021-08-16 12:43] VITALS: BP 115/68; PULSE 97; RESP 18; TEMP 36.8; O2SAT 97
[2021-08-16] MEDS: iron sucrose 200 MG in sodium chloride 0.9% (100 ml) 100 ML 220 MG IV (13:00)
== END ==
PROVIDERS: PCP Family Medicine; Visit Provider Internal Medicine
DX: O99.019 Anemia complicating pregnancy, unspecified trimester (principal); Z3A.00 Weeks of gestation of pregnancy not specified
CPT/HCPCS: 96365; J1756

== ENCOUNTER → 2021-08-23 12:56 | Day surgery (SDC) | payer OTHER, MEDICAID, SELFPAY ==
[2021-08-23 13:05] VITALS: BP 126/64; PULSE 86; RESP 18; TEMP 36.5; O2SAT 100; BMI 23.9
[2021-08-23] MEDS: iron sucrose 200 MG in sodium chloride 0.9% (100 ml) 100 ML 220 MG IV (13:15)
== END ==
PROVIDERS: PCP Family Medicine; Visit Provider Internal Medicine
DX: O99.019 Anemia complicating pregnancy, unspecified trimester (principal); Z3A.00 Weeks of gestation of pregnancy not specified
CPT/HCPCS: 96365; J1756

== ENCOUNTER → 2021-09-01 08:44 | Day surgery (SDC) | payer OTHER, MEDICAID, SELFPAY ==
[2021-09-01] MEDS: iron sucrose 200 MG in sodium chloride 0.9% (100 ml) 100 ML 220 MG IV (09:26)
[2021-09-01 09:30] VITALS: BP 114/65; PULSE 70; RESP 18; TEMP 36.7; O2SAT 98
== END ==
PROVIDERS: PCP Family Medicine; Visit Provider Internal Medicine
DX: O99.019 Anemia complicating pregnancy, unspecified trimester (principal); Z3A.00 Weeks of gestation of pregnancy not specified
CPT/HCPCS: 84315; 96365; J1756

== ENCOUNTER → 2021-09-06 12:54 | Day surgery (SDC) | payer OTHER, MEDICAID, SELFPAY ==
[2021-09-06 13:09] VITALS: BP 125/58; PULSE 77; RESP 18; TEMP 36.4; O2SAT 99
[2021-09-06] MEDS: iron sucrose 200 MG in sodium chloride 0.9% (100 ml) 100 ML 220 MG IV (13:17)
== END ==
PROVIDERS: PCP Family Medicine; Visit Provider Internal Medicine
DX: O99.019 Anemia complicating pregnancy, unspecified trimester (principal); Z3A.00 Weeks of gestation of pregnancy not specified
CPT/HCPCS: 96365; J1756

== ENCOUNTER 2021-09-14 06:58 | Outpatient (CLI) | payer OTHER, MEDICAID, SELFPAY ==
--- NOTE | 2021-09-14 07:00 | US_ITS ---
WS: [id number] LIMITED OBSTETRICAL ULTRASOUND HISTORY: O99.019 - Anemia complicating , unspecified trim... COMPARISON: 08/17/2021, 02/18/2021 Presentation: Vertex. Cervix: Closed and normal length. Placenta: Fundal and posterior. Grade: 3 HEART: FHR of 133 BPM. measurements: BPD = 9.6 cm = 39w0d HC = 33.9 cm = 38w6d AC = 34.6 cm = 38w3d FL = 7.2 cm = 37w0d BPD and abdominal circumference are at the 90th percentile for age. Head circumference at the 86th pe rcentile for age. GUNNAR: 12.9 cm EFW: 3437 g; greater than 90th %. AGA by ultrasound: 38w2d JESSICA by ultrasound: 09/26/2021 US/US OB limited 04734 IMPRESSION: 1. Single intrauterine gestation of 38 weeks 2 days with an EDC of 09/26/2021. Fetus is measuring approximately 16 weeks greater in size than expected based u roel the first trimester ultrasound dating. 2. Estimated weight greater than 90th percentile. 3. BPD circumference are greater than the 90th percentile for age. 4. Grade 3 placenta.
== END 2021-09-14 06:59 | disposition home or self-care (01) ==
LOC: RAD 07:00
PROVIDERS: PCP Family Medicine; Visit Provider Obstetrics & Gynecology
DX: O99.013 Anemia complicating pregnancy, third trimester (principal); Z3A.38 38 weeks gestation of pregnancy
CPT/HCPCS: 76815; 84315; 85027; 87081

== ENCOUNTER → 2021-09-21 09:50 | Outpatient (BNVA) | payer OTHER, MEDICAID, SELFPAY | PROVIDERS: PCP Family Medicine; Visit Provider Obstetrics & Gynecology | DX: O99.019 Anemia complicating pregnancy, unspecified trimester (principal); O36.60X0 Maternal care for excessive fetal growth, unspecified trimester, not applicable or unspecified; O34.219 Maternal care for unspecified type scar from previous cesarean delivery; O99.119 Other diseases of the blood and blood-forming organs and certain disorders involving the immune mechanism complicating pregnancy, unspecified trimester; D69.6 Thrombocytopenia, unspecified; D64.9 Anemia, unspecified; Z3A.00 Weeks of gestation of pregnancy not specified | CPT/HCPCS: 84315; 85027 ==

== ENCOUNTER 2021-10-05 05:00 | Inpatient (IN) | payer OTHER, MEDICAID, SELFPAY ==
--- NOTE | 2021-09-27 09:40 | P.ANESASSM_ITS ---
Pre-Anesthetic Assessment Height/Weight: Height 1.7 m Preop Diagnosis: IUP Operation Date: 10/05/21 07:00 Proposed Procedures p Section Repeat 17347/o34.219(Not Applicable) - Kristin Poole MD Familial anesthetic complications: None Social No alcohol and No tobacco Exam alert, oriented x 3, clear to auscultation bilaterally and regular rate & rhythm Airway Mallampati: Class II Dentition: full CV/HEM Anemia Thrombocytopenia - check before spinal Anesthetic Plan ASA status: 2 Anesthesia: Regional (specify below) (spinal) Risk of > 500 ml blood loss (7ml/kg in children): No Medications/Allergies Home Medications Medication Instructions Recorded Confirmed Last Taken Type PNV 153-FA 400 mcg-om3 35 mg-dha 2 tab PO DAILY 10/15/19 09/21/21 09/06/21 History 25 mg-epa 5 mg-fish oil chew tablet ( Gummies) Allergies Allergy/AdvReac Type Severity Reaction Status Date / Time No Known Allergies Allergy Verified 09/21/21 10:01 [facility] Anesthesia Medical History No pertinent past medical history Denies diabetes, asthma, hypertension, seizures, DVT/PE PCP: Dr. Talavera Surgical History H/O dilation and curettage (05/12/17) Missed with retained products after Cytotec. D&C performed by Dr. Pastrana at [facility] in [place], [place]. Pathology--> products of conception S/P primary low transverse (06/03/20) Diagnosis: Nonreassuring heart tones. Performed by Dr. Shoemaker at [facility] in [place], [place]. ---> Operative report reviewed-primary low transverse delivery--double layer closure with no extensions Family History Grandmother Diabetes Maternal grandmother Stroke paternal Mother Ovarian cancer diagnosed at age 50 Denies family history of Colon cancer Thyroid cancer Clotting disorder Heart disease Hyperlipidemia Breast cancer Bleeding disorder Hypertension Uterine cancer Female Reproductive History Date of last menstrual period: 08/26/19 Data Anesthesia Cardiac Studies: No Data to Display
[2021-10-05] VITALS (24 sets, daily range): BP systolic 100–123; BP diastolic 58–88; PULSE 61–91; RESP 16–18; TEMP 35.9–36.7; O2SAT 97–100; BMI 25.7
[2021-10-05] MEDS: lactated ringers 1,000 ML 999 ML IV (05:29)
[2021-10-05 05:33] LABS: Basophils # 0.1 10^3/uL (0.0-0.1); Basophils % 0.6 %; Eosinophils # 0.1 10^3/uL (0.0-0.8); Eosinophils % 1.4 %; Hematocrit 35.3 % (37.0-47.0); Hemoglobin 12.7 g/dL (11.5-15.3); Lymphocytes # 2.4 10^3/uL (0.8-4.8); Lymphocytes % 30.4 %; Mean Corpuscular Hemoglobin 29.6 pg (28.0-34.0); Mean Corpuscular Volume 82.3 fl (81-99); Monocytes # 0.9 10^3/uL (0.2-0.9); Monocytes % 11.8 %; Neutrophils # 4.29 10^3/uL (1.8-7.7); Neutrophils % 53.7 %; Nucleated Red Blood Cells % 0 %; Platelet Count 101 10^3/cmm (130-400); Red Blood Count 4.29 10^6/uL (4.1-5.3)
[2021-10-05] MEDS: lactated ringers 1,000 ML 125 ML IV (06:36)
[2021-10-05] MEDS: citric acid-sodium citrate 30 mL UDC PO (06:49)
[2021-10-05] MEDS: metoclopramide 5 mg/mL SDV 2 mL 10 MG IVP (06:49)
[2021-10-05] MEDS: famotidine 20 mg/2 mL INJ IVP (06:49)
--- NOTE | 2021-10-05 06:49 | W.PM.OPSUD ---
Surgery/Procedure H&P Update DATE OF PROCEDURE: October 05, 2021 DATE H&P PERFORMED: 09/28/21 H&P UPDATE INFORMATION: I have reviewed H&P completed within last 30 days, I have examined patient prior to procedure, No changes to prior documentation and H&P is in [facility] EMR on date indicated PREOP DIAGNOSIS: IUP PLANNED PROCEDURE: Operation Date: 10/05/21 07:00 Proposed Procedures p Section Repeat 34614/o34.219(Not Applicable) - Kristin Poole MD
--- NOTE | 2021-10-05 08:35 | PM.OP ---
Operative Report Date of procedure: October 05, 2021 OPERATIVE REPORT Date of surgery: 10/05/2021 Date of dictation: 10/05/2021 Preoperative diagnosis: 26-year-old 3 para 1-0-1-1 at 39 weeks and 0 days gestation, previous delivery x1 desiring repeat , thrombocytopenia-likely gestational, anemia status posttreatment-resolved, macrosomia Postoperative diagnosis/findings: Normal tubes and ovaries bilaterally, dense adhesions in the fascia and muscular layer, no intra-abdominal adhesions, dense bladder additions noted, baby boy, Sukhjinder weighing 8 pounds 6 ounces Apgars 9/9, clear amniotic fluid Procedure done: Repeat low transverse delivery via Pfannenstiel incision Specimens removed/disposition of specimens: Placenta and cord which were discarded Surgeon: Dr. Kristin Pastrana assistant grocery: Mary Ann Madrid Anesthesia: Spinal anesthesia Estimated blood loss: 800 ml Intravenous fluids: 1100 mL of LR Urine output: 300 mL of clear urine at the end of procedure Medications: As per anesthesia records Complications: None, patient and baby were left to recover in a stable condition. PROCEDURE: After consent was obtained, patient was taken to the operating room where spinal anesthesia was placed without difficulty. She was placed supine on the table with a left lateral wedge. Goldstein catheter and SCDs were placed. The abdomen was shaved and then prepped with duo prep. She was draped in a sterile fashion. After checking adequacy of anesthesia, a Pfannenstiel incision was made 2 cm above the pubic symphysis at the base of her old scar. The incision was carried down to the fascia using the Bovie. The fascia was nicked in the midline and the fascial incision was extended laterally using curved Mayos. The inferior aspect of the fascia was grasped with nikky clamps and dissected off from the underlying rectus muscle. This was repeated again superiorly without any difficulty. The rectus muscle was . A zay was made in the peritoneum and the peritoneal incision was carried inferiorly taking care to proceed in layers so as to avoid the bladder. The peritoneal incision was extended superiorly as well. No adhesions were noted from the uterus to the anterior abdominal wall. The uterus was noted to be rotated to the left. The bladder peritoneum was grasped with smooth forceps a bladder flap was created. Dense bladder adhesions were noted. The bladder blade was replaced thus protecting the bladder. A LOW TRANSVERSE UTERINE INCISION was made with a scalpel till the amniotic membrane was reached. The uterine incision was then extended laterally using bandage scissors. Amniotomy was done with Allis clamps and clear amniotic fluid was drained. The head of the baby was brought up to the level of the incision and delivered with fundal pressure. The remainder of body followed without any difficulty. The nose and mouth were suctioned, the umbilical cord was clamped and cut and the baby was handed off to the waiting hand silvering supervisor, Dr. Daugherty. The placenta was delivered spontaneously with fundal massage. It was noted to be intact and was discarded. The interior of the uterus was cleaned of all clot and debris and was noted to be christina well. The uterus was exteriorized. The uterine incision was closed with 0 Vicryl in a running interlocking manner. Good hemostasis and reapproximation was obtained. Wnzdeh-nz-avthd sutures were placed to obtain hemostasis and reapproximation and a second layer. The abdomen was irrigated and the gutters were cleaned of clot and debris. Normal tubes and ovaries were noted bilaterally. The uterus was placed back into the abdomen and uterine incision was noted to be hemostatic. The peritoneum was closed with a 2-0 plain in a continuous stitch. The rectus muscle was reapproximated with 2-0 plain suture in a mattress stitch. Good hemostasis was noted in the rectus muscle layer. The fascia was inspected for any defects and none were found and the fascia was closed with 0 looped PDS in continuous stitch. The subcutaneous plane was then irrigated and hemostasis was obtained using the Bovie. The subcutaneous plane was then reapproximated using 2-0 plain suture in a continuous manner. Patient had desired her keloid excised and the keloid was grasped with Allis and excised. At the edges of the scar were now fresh. Hemostasis was achieved. The skin was then closed with 4-0 Monocryl in a subcuticular fashion. Good reapproximation and hemostasis was noted. Steri-Strips were applied. The incision was dressed with Telfa ,ABD and paper tape. The fundus was noted to be firm at the end of the procedure and excess blood was expressed from the vagina. The patient was left to recover in a stable condition. This documentation was created by [employer] product management manager software (known for inherent product management manager error). Every effort was made to assure accuracy of product management manager. Any obvious errors or omissions should be clarified with the author of the document. Pre-op diagnosis: Preop Diagnosis IUP
[2021-10-05] MEDS: acetaminophen 325 mg Tablet 650 MG PO (12:43)
--- NOTE | 2021-10-05 14:21 | P.ANESUD_ITS ---
Pre-Anesthetic Update Pre-Anesthetic Assessment: Date of Surgery/Procedure: 10/05/21 Preop Anali gnosis: IUP Proposed Procedure: Operation Date: 10/05/21 07:00 Proposed Procedures p Section Repeat 65664/o34.219(Not Applicable) - Kristin Poole MD Any changes to Pre-Anesthetic Assessment?: No Last Intake: Intake Last Liquid Date 10/04/21 Last Liquid Time 22:00 Last Solid Date 10/04/21 Last Solid Time 19:30 Labs Last 48hrs: Short CBC 10/05/21 Range/Units 05:21 WBC 8.0 (4.0-10.0) 10^3/ uL Hgb 12.7 (11.5-15.3) g/dL Hct 35.3 L (37.0-47.0) % MCV 82.3 (81-99) fl Plt Count 101 L (130-400) 10^3/c mm Neut % (Auto) 53.7 % Neut # (Auto) 4.29 (1.8-7.7) 10^3/u L Blood Bank 10/05/21 05:21 Blood Type A Positive Rho(D) Type Positive Antibody Screen Negative Vitals: Temperature 98.0 F 10/05/21 09:45 Temperature Source Axillary 10/05/21 08:35 Pulse Rate 78 10/05/21 12:00 Pulse Rhythm 10/05/21 05:41 Pulse Strength 3+ Normal 10/05/21 05:41 Respiratory Rate 17 10/05/21 12:00 Respiratory Effort Non-Labored 10/05/21 05:41 Respiratory Depth Normal 10/05/21 05:41 Respiratory Patter n 10/05/21 05:41 Blood Pressure 105/59 10/05/21 12:00 Blood Pressure Heather n 74 10/05/21 12:00 Blood Pressure Pos ition Semi Fowlers 10/05/21 12:00 Pulse Oximetry 98 10/05/21 12:00 Oxygen Delivery Me thod 10/05/21 12:00 Exam: Pre-Anes Outpt Exam: alert, oriented x 3, clear to auscultation bilaterally and regular rate & rhythm Additional Exam Findings (including area of procedure): Plts > 100k, plan SAB Cardiac Studies: No Data to Display
--- NOTE | 2021-10-05 14:22 | ANE.PACU2 ---
Inpatient post-anesthesia follow up: Airway intact: Yes Vital signs: Temperature 98.0 F Pulse Rate 78 Respiratory Rate 17 Blood Pressure 105/59 Pulse Oximetry 98 Oxygen Delivery Me thod Room Air Oxygen Flow Rate Fraction of Inspir ed Oxygen Hydration adequate: Yes Pain level: 2 Mental status: Baseline
--- NOTE | 2021-10-05 14:33 | ANE.PACU2 ---
Inpatient post-anesthesia follow up: Airway intact: Yes Vital signs: Temperature 98.0 F Pulse Rate 78 Respiratory Rate 17 Blood Pressure 105/59 Pulse Oximetry 98 Oxygen Delivery Me thod Room Air Oxygen Flow Rate Fraction of Inspir ed Oxygen Hydration adequate: Yes Nausea and vomiting: No Pain level: 1 Mental status: Baseline
[2021-10-05] MEDS: dextrose 5%-lactated ringers 1,000 ML 125 ML IV (15:02)
[2021-10-05] MEDS: ibuprofen 800 mg tablet PO ×2 (15:03→22:48)
[2021-10-05 17:49] LABS: Hematocrit 28.2 % (37.0-47.0); Hemoglobin 10.2 g/dL (11.5-15.3); Mean Corpuscular HGB Conc 36.2 g/dL (30.0-36.0); Mean Corpuscular Hemoglobin 29.7 pg (28.0-34.0); Mean Corpuscular Volume 82.2 fl (81-99); Mean Platelet Volume 8.9 fL (7.4-10.4); Platelet Count 90 10^3/cmm (130-400); Red Blood Count 3.43 10^6/uL (4.1-5.3); Red Cell Distribution Width 17.9 % (12.1-15.1); White Blood Count 9.6 10^3/uL (4.0-10.0)
[2021-10-06] MEDS: HYDROcodone-acetaminophen 5-325 mg Tablet PO ×4 (04:11→22:48)
[2021-10-06 04:30] VITALS: BP 107/69; PULSE 68; RESP 16; TEMP 36.6; O2SAT 97
[2021-10-06 05:30] LABS: Hematocrit 27.5 % (37.0-47.0); Hemoglobin 9.2 g/dL (11.5-15.3); Mean Corpuscular HGB Conc 33.5 g/dL (30.0-36.0); Mean Corpuscular Hemoglobin 28.7 pg (28.0-34.0); Mean Corpuscular Volume 85.7 fl (81-99); Mean Platelet Volume 9.7 fL (7.4-10.4); Platelet Count 73 10^3/cmm (130-400); Red Blood Count 3.21 10^6/uL (4.1-5.3); Red Cell Distribution Width 17.9 % (12.1-15.1); White Blood Count 8.5 10^3/uL (4.0-10.0)
[2021-10-06] MEDS: docusate sodium 100 mg Capsule PO ×2 (09:24→18:54)
[2021-10-06] MEDS: prenatal vitamin Capsule 1 CAP PO (09:24)
[2021-10-06] MEDS: ferrous sulfate EC 325 mg Tablet PO ×2 (09:25→18:49)
[2021-10-06] MEDS: ibuprofen 800 mg tablet PO ×3 (09:25→21:24)
[2021-10-06 09:29] VITALS: BP 117/72; PULSE 93; RESP 16; TEMP 36.6; O2SAT 98
[2021-10-06] MEDS: simethicone 80 mg Chew PO ×3 (09:35→22:49)
[2021-10-06 15:58] LABS: Mean Corpuscular HGB Conc 33.3 g/dL (30.0-36.0); Mean Corpuscular Hemoglobin 29.9 pg (28.0-34.0); Mean Corpuscular Volume 89.8 fl (81-99); Mean Platelet Volume 9.4 fL (7.4-10.4); Platelet Count 117 10^3/cmm (130-400); Red Blood Count 3.34 10^6/uL (4.1-5.3); Red Cell Distribution Width 18.6 % (12.1-15.1); White Blood Count 9.5 10^3/uL (4.0-10.0)
[2021-10-06 17:26] LABS: Eosinophils 0 %; Lymphocytes 16 %; Lymphocytes Absolute 3.5 10^3/cmm (1.2-3.4); Platelet Estimate Decreased (Normal); Segmented Neutrophils 53 %; Smudge Cells 1+; Total Cells Counted 100 (0-100)
[2021-10-06 17:27] VITALS: BP 110/67; PULSE 72; RESP 16; TEMP 36.6; O2SAT 97
--- NOTE | 2021-10-06 17:35 | PM.PN ---
Subjective Subjective: SUBJECTIVE: Ms. Mcgovern is overall doing pretty okay. Had a lot of itching yesterday but that has since subsided. States that pain is overall well controlled with medication did have some right-sided shoulder pain immediately postoperatively but this has struck covered and resolved. She is breast-feeding without any difficulty. She does report overall feeling good. She has been voiding without difficulty and ambulating well. She has passed flatus and tolerated regular diet and denies any nausea. Denies shortness of breath, chest pain, nausea, vomiting calf tenderness and pain. OBJECTIVE/PHYSICAL EXAM: Gen.: No acute distress Heart: S1-S2 heard, regular rate and rhythm Lungs: Clear to auscultation bilaterally Abdomen: Soft, fundus firm below umbilicus, tenderness around incision. Incision: Clean dry and intact with Steri-Strips. Legs: No calf tenderness, trace bilateral pitting pedal edema. ASSESSMENT AND PLAN: 26-year-old 2 3 para 2-0-1-2 status post scheduled repeat delivery, postoperative day #1 -Continue routine postoperative care -Continue ambulation and incentive spirometry use -P.o. pain medication as needed -Thrombocytopenia-overall platelets are stable, anemia-overall hemoglobin stable and patient's vital signs within normal limits -Continue to monitor till tomorrow and as long as she is doing good anticipate discharge home tomorrow. Vitals/I&O/Wt Last Vital Signs Temp 98.5 F 10/07/21 04:50 Pulse 74 10/07/21 04:50 Resp 16 10/07/21 04:50 BP 117/76 10/07/21 04:50 Pulse Ox 98 10/07/21 04:50 10/06/21 10/07/21 10/07/21 22:59 06:59 14:59 Output Total 300 / 1500 Balance -300 / -1500 Physical Exam Urinary Catheter Management: Goldstein: Cath Placed During This Visit: yes, but has since been removed by the nurse Reason for Continuing Indwelling Catheter: Decision to DC Catheter Urinary Catheter Date of Insertion: 10/05/21 Urinary Catheter Time of Insertion: 07:10 Date Urinary Catheter Removed: 10/05/21 Time Urinary Catheter Discontinued: 18:30 Data : 10/07/21 05:31 Attestations Medical Necessity Statement*: Patient needs to stay to recover from surgery Coding Level of Care Code Acute Hospice/Home Health Aide for Sj Landin
[2021-10-06 20:50] VITALS: BP 124/71; PULSE 66; RESP 16; TEMP 36.9; O2SAT 98
[2021-10-07 04:50] VITALS: BP 117/76; PULSE 74; RESP 16; TEMP 36.9; O2SAT 98
[2021-10-07 05:38] LABS: Basophils % 0.6 %; Eosinophils # 0.2 10^3/uL (0.0-0.8); Eosinophils % 2.5 %; Hematocrit 26.7 % (37.0-47.0); Hemoglobin 8.8 g/dL (11.5-15.3); Lymphocytes # 2.1 10^3/uL (0.8-4.8); Lymphocytes % 28.2 %; Mean Corpuscular Hemoglobin 29.2 pg (28.0-34.0); Mean Corpuscular Volume 88.7 fl (81-99); Mean Platelet Volume 8.7 fL (7.4-10.4); Monocytes # 0.9 10^3/uL (0.2-0.9); Monocytes % 12.4 %; Neutrophils # 4.01 10^3/uL (1.8-7.7); Neutrophils % 55.2 %; Nucleated Red Blood Cells % 0 %; Platelet Count 90 10^3/cmm (130-400); Red Blood Count 3.01 10^6/uL (4.1-5.3); Red Cell Distribution Width 18.5 % (12.1-15.1); White Blood Count 7.3 10^3/uL (4.0-10.0)
[2021-10-07] MEDS: prenatal vitamin Capsule 1 CAP PO (07:41)
[2021-10-07] MEDS: ferrous sulfate EC 325 mg Tablet PO (07:41)
[2021-10-07] MEDS: docusate sodium 100 mg Capsule PO (07:42)
[2021-10-07] MEDS: ibuprofen 800 mg tablet PO (07:43)
[2021-10-07 08:50] VITALS: BP 116/72; PULSE 74; RESP 18; TEMP 36.9
[2021-10-07] MEDS: lanolin oint 7 gm 1 APPLIC TOPICAL (08:59)
--- NOTE | 2021-10-07 10:41 | P.DS_ITS ---
Discharge Providers SECURITY GUARD Date of Admission: 10/05/21 05:00 Date of Discharge: 10/07/21 Attending Provider at Admission: Kristin Poole MD Attending Provider at Discharge: Kristin Poole MD Primary Care Provider: - PRE-DELIVERY DIAGNOSIS: 26-year-old 3 para 1-0-1-1 at 39 weeks and 0 days GBS negative Previous delivery x1 desiring repeat Thrombocytopenia-likely gestational Anemia-stable Discharge DIAGNOSIS: Repeat low transverse delivery Thrombocytopenia Anemia PROCEDURE: Repeat low transverse delivery on 10/05/2021 DELIVERING PHYSICIAN: Kristin Pastrana FACOG PRE-DELIVERY COURSE: Ms. Mcgovern is a 26-year-old 3 para 1-0-1-1 at 39 weeks and 0 days who presented to labor and delivery on 10/05/2021 for scheduled repeat delivery. She did have 1 previous and after discussion of options desired schedule repeat delivery. On day of procedure she had no new complaints and was overall doing well. Her prepregnancy course was complicated by anemia for which she received IV iron as well as vitamin B12 injections and she developed thrombocytopenia at 36 weeks---likely gestational. No other concerns. HOSPITAL COURSE: She underwent an uncomplicated repeat low transverse delivery on 10/05/2021. She did well on day 0 and was ambulating well, tolerating regular diet, voiding freely. She was breast-feeding without difficulty and bonding well with her son. Pain was well-controlled with by mouth pain medication. She denied nausea, vomiting, fever, chills, shortness of breath, leg pain. She had moderate vaginal bleeding. on day # 1 she continued to do well with stable vital signs and stable hemoglobin at 10.2. She had serial CBCs done because of her anemia and thrombocytopenia. Fluids of platelets went was 72 and the lowest the hemoglobin was was 8.8. On day #2 her hemoglobin was 8.8 and platelet count was stabilized at 90. Throughout this time vital signs were stable and patient denied any anemic symptoms. She was discharged home on day 2 in a stable condition, as she desired early discharge. Warning signs for endometritis, wound infection, mastitis, DVT/PE were reviewed with her. Post delivery activity restrictions were also reviewed with her at all her questions were answered to her satisfaction. EXAM AT DISCHARGE: Gen.: No acute distress Heart: S1-S2 heard, regular rate and rhythm Lungs: Clear to auscultation bilaterally Abdomen: Soft, fundus firm below umbilicus, tenderness around incision. Incision: Clean dry and intact with Steri-Strips. Legs: No calf tenderness, trace bilateral pitting pedal edema. CONDITION AT DISCHARGE: Stable This documentation was created by [employer] stroke belt sander operator software (known for inherent stroke belt sander operator error). Every effort was made to assure accuracy of stroke belt sander operator. Any obvious errors or omissions should be clarified with the author of the document. Reason for Visit Reason for Visit: previous section Information Peripartum Data: Infant Delivery Method: Physical Exam Urinary Catheter Management: Goldstein: Cath Placed During This Visit: yes, but has since been removed by the nurse Reason for Continuing Indwelling Catheter: Decision to DC Catheter Urinary Catheter Date of Insertion: 10/05/21 Urinary Catheter Time of Insertion: 07:10 Date Urinary Catheter Removed: 10/05/21 Time Urinary Catheter Discontinued: 18:30 History History History 3 Term 1 Miscarriages/Ectopic 1 0 Living Children 1 Discharge Data Studies Completed and Pending Laboratory Results WBC 7.3 10^3/uL (4.0-10.0) 10/07/21 05:31 RBC 3.01 10^6/uL (4.1-5.3) L 10/07/21 05:31 Hgb 8.8 g/dL (11.5-15.3) L 10/07/21 05:31 Hct 26.7 % (37.0-47.0) L 10/07/21 05:31 MCV 88.7 fl (81-99) 10/07/21 05:31 MCH 29.2 pg (28.0-34.0) 10/07/21 05:31 MCHC 33.0 g/dL (30.0-36.0) 10/07/21 05:31 RDW 18.5 % (12.1-15.1) H 10/07/21 05:31 Plt Count 90 10^3/cmm (130-400) L 10/07/21 05:31 MPV 8.7 fL (7.4-10.4) 10/07/21 05:31 Neut % (Auto) 55.2 % 10/07/21 05:31 Lymph % (Auto) 28.2 % 10/07/21 05:31 [place] % (Auto) 12.4 % 10/07/21 05:31 Eos % (Auto) 2.5 % 10/07/21 05:31 Baso % (Auto) 0.6 % 10/07/21 05:31 Neut # (Auto) 4.01 10^3/uL (1.8-7.7) 10/07/21 05:31 Lymph # (Auto) 2.1 10^3/uL (0.8-4.8) 10/07/21 05:31 [place] # (Auto) 0.9 10^3/uL (0.2-0.9) 10/07/21 05:31 Eos # (Auto) 0.2 10^3/uL (0.0-0.8) 10/07/21 05:31 Baso # (Auto) 0.0 10^3/uL (0.0-0.1) 10/07/21 05:31 Nucleated RBC % (auto) 0 % 10/07/21 05:31 Total Counted 100 (0-100) 10/06/21 15:10 Atypical Lymphs % 21.0 % (0-5) H 10/06/21 15:10 Absolute Neutrophils 5.0 10^3/cmm (1.4-6.5) 10/06/21 15:10 Segmented Neutrophils 53 % 10/06/21 15:10 Abs Segm Neuts (Man) 5.0 10/cmm (1.6-7.1) 10/06/21 15:10 Band Neutrophils 0.0 % 10/06/21 15:10 Abs Band Neuts (Man) 0.0 10^3/cmm (0.0-1.2) 10/06/21 15:10 Absolute Lymphocytes 3.5 10^3/cmm (1.2-3.4) H 10/06/21 15:10 Lymphocytes (Manual) 16 % 10/06/21 15:10 Monocytes (Manual) 10.0 % 10/06/21 15:10 Absolute Monocytes 1.0 10^3/cmm (0.1-0.6) H 10/06/21 15:10 Eosinophils (Manual) 0 % 10/06/21 15:10 Absolute Eosinophils 0.0 10^3/cmm (0.0-0.7) 10/06/21 15:10 Basophils (Manual) 0.0 % 10/06/21 15:10 Absolute Basophils 0.0 10^3/cmm (0.0-0.2) 10/06/21 15:10 Nucleated RBCs # 0.0 /100WBC 10/07/21 05:31 Smudge Cells 1+ H 10/06/21 15:10 Platelet Estimate Decreased (Normal) L 10/06/21 15:10 Blood Type A Positive 10/05/21 05:21 Rho(D) Type Positive 10/05/21 05:21 Antibody Screen Negative 10/05/21 05:21 Vitals Last Vital Signs Temp 98.5 F 10/07/21 04:50 Pulse 74 10/07/21 04:50 Resp 16 10/07/21 04:50 BP 117/76 10/07/21 04:50 Pulse Ox 98 10/07/21 04:50 Discharge Plan Discharge Patient Disposition: Home Condition: Stable Prescriptions: New ferrous sulfate 325 mg (65 mg iron) tablet 325 mg PO BID Qty: 30 0RF docusate sodium 100 mg Capsule 100 mg PO BID PRN (Reason: constipation) Qty: 30 0RF ibuprofen 800 mg tablet 800 mg PO Q8H Qty: 30 0RF hydrocodone-acetaminophen 5-325 mg tablet 1 tab PO Q6H Qty: 25 0RF Rx Instructions: Alternate with ibuprofen Continued Gummies 400 mcg-35 mg- 25 mg-5 mg Tablet,Chewable 2 tab PO DAILY 0RF Rx Instructions: pt states she takes with the tabs Discharge Orders: Discharge Order (Routine); Ordered 10/07/21 Ordered By: Kristin Poole Referrals: Kristin Poole MD [Physician] - (2 WEEK FOLLOW UP October AT 0845AM 6 WEEK FOLLOW UP NOVEMBER 16 AT 0900) Discharge Diet: Regular Discharge Activity: Limit activity as instructed Patient Instructions: (GEN), OB Discharge Report, OB Food/Drug Interaction Guide, OB Care at Home, Opioid Safety, OB Home Care, OB Proud Parent Packet Activity Restrictions/Additional Instructions: No heavy lifting for 6 weeks, pelvic rest for 6 weeks Follow-up with Dr. Pastrana 2 weeks in 6 weeks Emergency room precautions reviewed Discharge Attestations SECURITY GUARD Time Spent in Discharge Care*: greater than 30 min Coding Level of Care Code Acute [place] for Sj Landin
[2021-10-07 10:45] VITALS: BP 99/68; PULSE 87; RESP 18; TEMP 36.8
[2021-10-07 13:48] VITALS: BP 99/68; PULSE 87; RESP 18; TEMP 36.8
== END 2021-10-07 10:55 | disposition home or self-care (01) | DRG 787 ==
PROVIDERS: Admitting Provider Obstetrics & Gynecology; PCP Family Medicine; Visit Provider Obstetrics & Gynecology
PROC: 10D00Z1 Extraction of Products of Conception, Low, Open Approach (ICD-10-PCS; CPT 59514; principal; 2021-10-05 07:00)
DX: O34.211 Maternal care for low transverse scar from previous cesarean delivery (principal); O99.12 Other diseases of the blood and blood-forming organs and certain disorders involving the immune mechanism complicating childbirth; Z3A.39 39 weeks gestation of pregnancy; Z37.0 Single live birth; O36.63X0 Maternal care for excessive fetal growth, third trimester, not applicable or unspecified; O99.02 Anemia complicating childbirth; D64.9 Anemia, unspecified; D69.6 Thrombocytopenia, unspecified
CPT/HCPCS: 36415; 51702; 59409; 85007; 85025; 85027; 86850; 86900; 96374; J0690; J2250; J2274; J2370; J2765; J3010; J3490; J7030

== ENCOUNTER → 2021-10-19 09:42 | Outpatient (BNVA) | payer OTHER, MEDICAID, SELFPAY | PROVIDERS: PCP Family Medicine; Visit Provider Obstetrics & Gynecology | DX: D69.6 Thrombocytopenia, unspecified (principal) | CPT/HCPCS: 85027 ==

== ENCOUNTER → 2021-11-16 09:08 | Outpatient (BNVA) | payer OTHER, MEDICAID, SELFPAY | PROVIDERS: PCP Family Medicine; Visit Provider Obstetrics & Gynecology | DX: Z30.9 Encounter for contraceptive management, unspecified (principal); Z39.2 Encounter for routine postpartum follow-up | CPT/HCPCS: 81025 ==

== ENCOUNTER 2023-08-15 09:03 | Emergency (ER) | payer MEDICAID, SELFPAY ==
[2023-08-15 09:11] VITALS: BP 124/68; PULSE 78; RESP 14; TEMP 37.1; O2SAT 99; BMI 21.6
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
--- NOTE | 2023-08-15 10:21 | XRR_ITS ---
PROCEDURE INFORMATION: Exam: XR Cervical Spine Exam date and time: 08/15/2023 10:50 AM Age: 27 years old Clinical indication: Abnormal findings; Abnormal xray or scan of neck and cervical spine; Additional info: Abnormal CT TECHNIQUE: Imaging protocol: Radiologic exam of the cervical spine. Views: 2 or 3 views. COMPARISON: CT cervical spin wo con* [id number] 15/08/2023 09:40 FINDINGS: Bones/joints: Normal. No acute fracture. Normal alignment. The subtle anterior wedging of C4 by CT is not appreciated by plain radiographs. No subluxation or malalignment when comparing flexion, extension and neutral views of the lateral cervical spine Soft tissues: Unremarkable. XR/XR cervical spine fl/ex [id number] IMPRESSION: Normal alignment of the cervical spine.
[2023-08-15 11:20] VITALS: BP 126/81; PULSE 71; O2SAT 100
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
== END 2023-08-15 11:28 | disposition home or self-care (01) ==
PROVIDERS: Emergency Provider Physician Assistant; PCP Family Medicine
DX: S12.390A Other displaced fracture of fourth cervical vertebra, initial encounter for closed fracture (principal); V89.2XXA Person injured in unspecified motor-vehicle accident, traffic, initial encounter
CPT/HCPCS: 72040; 72125; 99284

== ENCOUNTER → 2023-08-22 15:00 | Outpatient (BNVA) | payer MEDICAID, SELFPAY | PROVIDERS: PCP Family Medicine; Visit Provider Orthopaedic Surgery | DX: S12.390A Other displaced fracture of fourth cervical vertebra, initial encounter for closed fracture (principal); S13.4XXA Sprain of ligaments of cervical spine, initial encounter; V89.2XXA Person injured in unspecified motor-vehicle accident, traffic, initial encounter; Y92.410 Unspecified street and highway as the place of occurrence of the external cause | CPT/HCPCS: 72040; 99203 ==

== ENCOUNTER → 2023-10-12 10:51 | Outpatient (BNVA) | payer MEDICAID, SELFPAY | PROVIDERS: PCP Family Medicine; Visit Provider Orthopaedic Surgery | DX: S13.4XXA Sprain of ligaments of cervical spine, initial encounter (principal); M54.2 Cervicalgia | CPT/HCPCS: 72040; 99213 ==

== ENCOUNTER 2024-02-09 14:55 | Emergency (ER) | payer SELFPAY ==
[2024-02-09 15:14] VITALS: BP 111/59; PULSE 84; RESP 14; TEMP 36.8; O2SAT 100; BMI 21.6
[2024-02-09 17:16] LABS: Basophils # 0.1 10^3/uL (0.0-0.1); Basophils % 0.7 %; Eosinophils # 0.1 10^3/uL (0.0-0.8); Eosinophils % 1.6 %; Hematocrit 37.6 % (36-47); Lymphocytes # 2.7 10^3/uL (0.8-4.8); Lymphocytes % 30.4 %; Mean Corpuscular HGB Conc 34.6 g/dL (30-55); Mean Corpuscular Hemoglobin 30.8 pg (27-33); Mean Corpuscular Volume 89.1 fl (85-98); Mean Platelet Volume 8.8 fL (7.4-10.4); Neutrophils # 5.07 10^3/uL (1.8-7.7); Neutrophils % 56.1 %; Nucleated Red Blood Cells % 0 %; Platelet Count 197 10^3/cmm (157-399); Red Blood Count 4.22 10^6/uL (3.85-5.65); Red Cell Distribution Width 12.5 % (12.1-15.1); White Blood Count 9.02 10^3/uL (3.29-11.43)
[2024-02-09 17:27] LABS: HCG, Serum Qual Positive (Negative)
[2024-02-09 17:35] LABS: Alanine Aminotransferase 12 U/L (0-33); Albumin Level 4.4 g/dL (3.5-5.2); Alkaline Phosphatase 53 U/L (35-105); Anion Gap 14.7 (5-19); Aspartate Amino Transferase 16 U/L (0-32); Blood Urea Nitrogen 19 mg/dL (6-20); Calcium 8.6 mg/dL (8.5-10.5); Carbon Dioxide 24 mmol/L (22-29); Chloride 102 mmol/L (98-107); Creatinine Clr Calc Pharmacy 165.4152; Globulin 2.5 g/dL (1.3-4.6); Glucose 91 mg/dL (65-115); Osmolality Calculated 286 mOsm/kg (285-295); Potassium 3.7 mmol/L (3.5-5.1); Sodium 137 mmol/L (136-145); Total Bilirubin 0.8 mg/dL (0.15-1.2); Total Protein 6.9 g/dL (6.6-8.7)
--- NOTE | 2024-02-09 19:14 | USR_ITS ---
PROCEDURE INFORMATION: Exam: US First Trimester, Transabdominal and US , Transvaginal Exam date and time: 02/09/2024 10:13 PM Age: 28 years old Clinical indication: complicated by abdominal or pelvic pain; Other: Cramping; Gestational age or lmp: Unsure of dates; Patient HX: Hcg 150; Additional info: Llq pain, pos preg LABS AND CLINICAL REPORTS: Last menstrual period start date: 01/02/2024 Gestational age (Established): 5 w 3 d Estimated due date (Established): 10/08/2024 TECHNIQUE: Imaging protocol: Real-time transabdominal obstetrical ultrasound of the maternal pelvis and a first trimester , less than 14 weeks 0 days, with image documentation. Transvaginal imaging was used for better evaluation of the fetus, adnexa, and/or cervix. COMPARISON: US OB limited [id number] 09/14/2021 7:07 AM FINDINGS: GESTATION: Gestation: Irregular shaped fluid collection in the uterine cavity measuring 8 mm may reflect an abnormal gestational sac, a nonspecific fluid collection is also a consideration. Given lack of a normal intrauterine , patient remains at risk for ectopic , close clinical correlation, serial beta HCG levels and follow-up ultrasound as clinically indicated advised. MATERNAL: Uterus: Unremarkable. Cervix: Cervical length measures 4 cm. Right ovary/adnexa: Right ovary 1.7 cm cyst, may be corpus luteal in nature with color blood flow the right ovary. Left ovary/adnexa: Obscured by lack of adequate acoustic window. Intraperitoneal space: No intraperitoneal free fluid. US/US OB <=14 wk fetus w transvag IMPRESSION: 1. Irregular shaped fluid collection in the uterine cavity measuring 8 mm may reflect an abnormal gestational sac, a nonspecific fluid collection is also a consideration. Given lack of a normal intrauterine , patient remains at risk for ectopic , close clinical correlation, serial beta HCG levels and follow-up ultrasound as clinically indicated advised. 2. Right ovary 1.7 cm cyst, may be corpus luteal in nature with color blood flow the right ovary.
[2024-02-09 19:33] LABS: Bilirubin Urine Negative (Negative); Blood Urine Negative (Negative); Glucose Urine UA Negative (Normal); Ketones Urine Negative (Negative); Leukocyte Esterase Urine Negative (Negative); Nitrate Urine Negative (Negative); Protein Urine Negative (Negative); Urine Appearance Clear (CLEAR); Urine Color Yellow (Yellow); pH Urine 5.5 (5-7)
[2024-02-09 19:36] LABS: Bacteria Urine 1+ /hpf; Hyaline Casts Urine 2.05 /lpf; RBC Urine 0-2 /hpf (0-2); Squamous Epithelial Cell Urine 0-5 /hpf (0-5); WBC Urine 0-5 /hpf (0-5)
[2024-02-09 19:40] LABS: Specific Gravity, Urine 1.031 (1.005-1.030)
[2024-02-09 20:32] VITALS: BP 114/68; PULSE 89; RESP 16; O2SAT 100
--- NOTE | 2024-02-09 20:37 | ED_ITS ---
Documented by User: Mariah Keys MD 02/09/24 22:07 HPI - Abdominal Pain 2 General: Chief Complaint: Abdominal Pain Stated Complaint: serve cramping Time Seen by Provider: 02/09/24 19:10 History of Present Illness: 28-year-old female who presents emergenc y room with pelvic cramping and left lower quadrant pain. She has had a recent home test that was positive. Last menstruation was just over a month ago. No vaginal bleeding. No vaginal discharge. No dysuria. No nausea or vomiting. No fevers. Related Data Home Medications Medication Instructions Recorded Confirmed No Known Home Medications 08/15/23 10/12/23 Allergies Allergy/AdvReac Type Severity Reaction Status Date / Time No Known Allergies Allergy Verified 02/09/24 15:21 Review of Systems 2 Narrative: Constitutional symptoms: Negative except as documented in HPI. Skin symptoms: Negative except as documented in HPI. Eye symptoms: Negative except as documented in HPI. ENMT symptoms: Negative except as documented in HPI. Respiratory symptoms: Negative except as documented in HPI. Cardiovascular symptoms: Negative except as documented in HPI. Gastrointestinal symptoms: Negative except as documented in HPI. Genitourinary symptoms: Negative except as documented in HPI. Musculoskeletal symptoms: Negative except as documented in HPI. Neurologic symptoms: Negative except as documented in HPI. Psychiatric symptoms: Negative except as documented in HPI. Endocrine symptoms: Negative except as documented in HPI. PFSH ED 2 PFSH: Medical History No pertinent past medical history Denies diabetes, asthma, hypertension, seizures, DVT/PE PCP: Dr. Talavera Surgical History Status post delivery (~10/05/21) [place] [address] [place] [facility] [place] Dense bladder adhesions. S/P primary low transverse (06/03/20) Diagnosis: Nonreassuring heart tones. [place] Shoemaker [place] [facility] [place] ---> Operative report reviewed-primary low transverse delivery--double layer closure with no extensions H/O dilation and curettage (05/12/17) Missed with retained products after Cytotec. D&C performed by Dr. Pastrana at [facility] in [place], [place]. Pathology--> products of conception Family History Grandmother Diabetes Maternal grandmother Stroke paternal Mother Ovarian cancer diagnosed at age 50 Denies family history of Colon cancer Thyroid cancer Clotting disorder Heart disease Hyperlipidemia Breast cancer Bleeding disorder Hypertension Uterine cancer Social History Smoking and tobacco/nicotine status: never used tobacco/nicotine Physical Exam 2 Narrative: EXAM NARRATIVE: General: Alert, no acute distress. Skin: Warm, dry. Head: Normocephalic, atraumatic. Neck: Supple, trachea midline. Eye: Extraocular movements are intact. Ears, nose, mouth and throat: mucosa moist. Cardiovascular: Regular, Normal peripheral perfusion. Respiratory: Lungs are clear to auscultation, respirations are non-labored, breath sounds are equal, Symmetrical chest wall expansion. Gastrointestinal: Soft, suprapubic and left adnexal tenderness, Non distended Musculoskeletal: Normal ROM, no deformity. Neurological: Alert and oriented, No focal neurological deficit observed. Psychiatric: Cooperative, appropriate mood & affect. Course 2 Vital Signs: Vital signs: Vital Signs Temperature 98.2 F 02/09/24 15:14 Pulse Rate 82 02/09/24 23:28 Respiratory Rate 16 02/09/24 23:28 Blood Pressure 112/63 02/09/24 23:28 Pulse Oximetry 96 02/09/24 23:28 Oxygen Delivery Me thod Room Air 02/09/24 15:14 MDM - Abdominal Pain Medical Decision Making Medical decision making: Differential diagnosis including but not limited to and based on the above HPI, review of systems and physical exam: In this patient with and left adnexal pain would have concern for ectopic . Urinary tract infection. Orders placed to evaluate differential diagnosis based on the above differential, HPI and physical exam Lab Review: Laboratory results were reviewed and interpreted by myself the emergency room physician. No leukocytosis. No anemia. No renal failure. qualitative is positive. Quant is 150. OB ultrasound is pending. Patient care transition to Dr. Holden. Lab Data 02/09/24 17:01 02/09/24 17:01 Labs/Radiology: Radiology Impressions Obstetrics Ultrasound 02/09/24 19:14 IMPRESSION: 1. Irregular shaped fluid collection in the uterine cavity measuring 8 mm may reflect an abnormal gestational sac, a nonspecific fluid collection is also a consideration. Given lack of a normal intrauterine , patient remains at risk for ectopic , close clinical correlation, serial beta HCG levels and follow-up ultrasound as clinically indicated advised. 2. Right ovary 1.7 cm cyst, may be corpus luteal in nature with color blood flow the right ovary. Laboratory Results WBC 9.02 10^3/uL (3.29-11.43) 02/09/24 17: RBC 4.22 10^6/uL (3.85-5.65) 02/09/24 17: Hgb 13.00 g/dL (11.27-16.99) 02/09/24 17: Hct 37.6 % (36-47) 02/09/24 17: MCV 89.1 fl (85-98) 02/09/24 17: MCH 30.8 pg (27-33) 02/09/24 17: MCHC 34.6 g/dL (30-55) 02/09/24 17:01 RDW 12.5 % (12.1-15.1) 02/09/24 17: Plt Count 197 10^3/cmm (157-399) 02/09/24 17: MPV 8.8 fL (7.4-10.4) 02/09/24 17:01 Neut % (Auto) 56.1 % 02/09/24 17:01 Lymph % (Auto) 30.4 % 02/09/24 17:01 Terry % (Auto) 11.0 % 02/09/24 17: Eos % (Auto) 1.6 % 02/09/24 17:01 Baso % (Auto) 0.7 % 02/09/24 17:01 Neut # (Auto) 5.07 10^3/uL (1.8-7.7) 02/09/24 17: Lymph # (Auto) 2.7 10^3/uL (0.8-4.8) 02/09/24 17:01 Terry # (Auto) 1.0 10^3/uL (0.2-0.9) H 02/09/24 17: Eos # (Auto) 0.1 10^3/uL (0.0-0.8) 02/09/24 17:01 Baso # (Auto) 0.1 10^3/uL (0.0-0.1) 02/09/24 17:01 Nucleated RBC % (auto) 0 % 02/09/24 17:01 Nucleated RBCs # 0.0 /100WBC 02/09/24 17:01 Sodium 137 mmol/L (136-145) 02/09/24 17:01 Potassium 3.7 mmol/L (3.5-5.1) 02/09/24 17:01 Chloride 102 mmol/L (98-107) 02/09/24 17:01 Carbon Dioxide 24 mmol/L (22-29) 02/09/24 17:01 Anion Gap 14.7 (5-19) 02/09/24 17:01 BUN 19 mg/dL (6-20) 02/09/24 17:01 Creatinine 0.5 mg/dL (0.5-0.9) 02/09/24 17:01 GFR Calculation 148.0 mL/min (90-130) H 02/09/24 17:01 Glucose 91 mg/dL (65-115) 02/09/24 17:01 Calculated Osmolality 286 mOsm/kg (285-295) 02/09/24 17:01 Calcium 8.6 mg/dL (8.5-10.5) 02/09/24 17:01 Total Bilirubin 0.8 mg/dL (0.15-1.2) 02/09/24 17:01 AST 16 U/L (0-32) 02/09/24 17:01 ALT 12 U/L (0-33) 02/09/24 17:01 Alkaline Phosphatase 53 U/L (35-105) 02/09/24 17:01 Total Protein 6.9 g/dL (6.6-8.7) 02/09/24 17:01 Albumin 4.4 g/dL (3.5-5.2) 02/09/24 17: Globulin 2.5 g/dL (1.3-4.6) 02/09/24 17:01 HCG, Qual Positive (Negative) H 02/09/24 17:01 Ser , Semi-Qnt 156.10 mIU/mL 02/09/24 17:01 Urine Color Yellow (Yellow) 02/09/24 19:12 Urine Appearance Clear (CLEAR) 02/09/24 19:12 Urine pH 5.5 (5-7) 02/09/24 19:12 Ur Specific [place] 1.031 (1.005-1.030) H 02/09/24 19:12 Urine Protein Negative (Negative) 02/09/24 19:12 Urine Glucose (UA) Negative (Normal) 02/09/24 19:12 Urine Ketones Negative (Negative) 02/09/24 19:12 Urine Blood Negative (Negative) 02/09/24 19:12 Urine Nitrate Negative (Negative) 02/09/24 19:12 Urine Bilirubin Negative (Negative) 02/09/24 19:12 Urine Urobilinogen 1.0 mg/dL (Negative) 02/09/24 19:12 Ur Leukocyte Esterase Negative (Negative) 02/09/24 19:12 Urine RBC 0-2 /hpf (0-2) 02/09/24 19:12 Urine WBC 0-5 /hpf (0-5) 02/09/24 19:12 Ur Squamous Epith Cells 0-5 /hpf (0-5) 02/09/24 19:12 Amorphous Sediment Not Reportable 02/09/24 19:12 Urine Bacteria 1+ /hpf (NONE) H 02/09/24 19:12 Hyaline Casts 2.05 /lpf 02/09/24 19:12 Discharge Plan Discharge Patient Disposition: Home Clinical Impression: Abdominal pain affecting Condition: Stable Prescriptions: No Action No Known Home Medications Discharge Orders: Discharge ED (Routine); Ordered 02/09/24 Ordered By: Zander Holden Referrals: Marialuisa Talavera MD [Primary Care Provider] - Discharge Diet: Usual diet Discharge Activity: Increase activity as tolerated Patient Instructions: Abdominal Pain in (ED), Opioid Safety, Pain Management Activity Restrictions/Additional Instructions: Please follow with your primary care provider for repeat serum hCG levels in the next 3 to 4 days. Thank you for choosing [facility] for your healthcare needs today. Please realize this is an emergency room and that we are providing you with a medical screening exam and this may not be complete and all inclusive of all the testing and or work up that you may need to determine your ailment or severity of your illness. You have been screened and evaluated and felt safe for discharge. Health conditions do change or evolve sometimes and as such it is important that you follow up with your Primary Doctor to be re checked, 3-5 days is a general good time frame for follow up. You are always welcome to return to the ED for re assessment if your symptoms are worsening or you have new concerns Coding Level of Care Code ED Refrigerator Room Clerk for Chg Fwd Documented by User: Zander Holden DO 02/10/24 00:01 HPI - Abdominal Pain 2 General: Chief Complaint: Abdominal Pain Stated Complaint: serve cramping Time Seen by Provider: 02/09/24 19:10 Related Data Home Medications Medication Instructions Recorded Confirmed No Known Home Medications 08/15/23 10/12/23 Allergies Allergy/AdvReac Type Severity Reaction Status Date / Time No Known Allergies Allergy Verified 02/09/24 15:21 PFSH ED 2 PFSH: Medical History No pertinent past medical history Denies diabetes, asthma, hypertension, seizures, DVT/PE PCP: Dr. Talavera Surgical History Status post delivery (~10/05/21) [place] repeat [place] [address] [place] [facility] [place] Dense bladder adhesions. S/P primary low transverse (06/03/20) Diagnosis: Nonreassuring heart tones. [place] Shoemaker [place] [facility] [place]. ---> Operative report reviewed-primary low transverse delivery--double layer closure with no extensions H/O dilation and curettage (05/12/17) Missed with retained products after Cytotec. D&C performed by Dr. Pastrana at [facility] in [place], [place]. Pathology--> products of conception Family History Grandmother Diabetes Maternal grandmother Stroke paternal Mother Ovarian cancer diagnosed at age 50 Denies family history of Colon cancer Thyroid cancer Clotting disorder Heart disease Hyperlipidemia Breast cancer Bleeding disorder Hypertension Uterine cancer Social History Smoking and tobacco/nicotine status: never used tobacco/nicotine Course 2 Vital Signs: Vital signs: Vital Signs Temperature 98.2 F 02/09/24 15:14 Pulse Rate 82 02/09/24 23:28 Respiratory Rate 16 02/09/24 23:28 Blood Pressure 112/63 02/09/24 23:28 Pulse Oximetry 96 02/09/24 23:28 Oxygen Delivery Me thod Room Air 02/09/24 15:14 MDM - Abdominal Pain Medical Decision Making Medical decision making: Differential diagnosis including but not limited to and based on the above HPI, review of systems and physical exam: In this patient with and left adnexal pain would have concern for ectopic . Urinary tract infection. Orders placed to evaluate differential diagnosis based on the above differential, HPI and physical exam Lab Review: Laboratory results were reviewed and interpreted by myself the emergency room physician. No leukocytosis. No anemia. No renal failure. qualitative is positive. Quant is 150. OB ultrasound is pending. Patient care transition to Dr. Holden. After ultrasound was obtained, patient had to leave because she only had daycare till midnight, we informed her that we do not have the ultrasound results back yet she said that is okay we can call her with the results and if anything changes we can take care of it then. Lab Data 02/09/24 17:01 02/09/24 17:01 Labs/Radiology: Radiology Impressions Obstetrics Ultrasound 02/09/24 19:14 IMPRESSION: 1. Irregular shaped fluid collection in the uterine cavity measuring 8 mm may reflect an abnormal gestational sac, a nonspecific fluid collection is also a consideration. Given lack of a normal intrauterine , patient remains at risk for ectopic , close clinical correlation, serial beta HCG levels and follow-up ultrasound as clinically indicated advised. 2. Right ovary 1.7 cm cyst, may be corpus luteal in nature with color blood flow the right ovary. Laboratory Results WBC 9.02 10^3/uL (3.29-11.43) 02/09/24 17:01 RBC 4.22 10^6/uL (3.85-5.65) 02/09/24 17:01 Hgb 13.00 g/dL (11.27-16.99) 02/09/24 17:01 Hct 37.6 % (36-47) 02/09/24 17: MCV 89.1 fl (85-98) 02/09/24 17:01 MCH 30.8 pg (27-33) 02/09/24 17: MCHC 34.6 g/dL (30-55) 02/09/24 17: RDW 12.5 % (12.1-15.1) 02/09/24 17: Plt Count 197 10^3/cmm (157-399) 02/09/24 17:01 MPV 8.8 fL (7.4-10.4) 02/09/24 17:01 Neut % (Auto) 56.1 % 02/09/24 17:01 Lymph % (Auto) 30.4 % 02/09/24 17:01 Terry % (Auto) 11.0 % 02/09/24 17: Eos % (Auto) 1.6 % 02/09/24 17:01 Baso % (Auto) 0.7 % 02/09/24 17:01 Neut # (Auto) 5.07 10^3/uL (1.8-7.7) 02/09/24 17:01 Lymph # (Auto) 2.7 10^3/uL (0.8-4.8) 02/09/24 17:01 Terry # (Auto) 1.0 10^3/uL (0.2-0.9) H 02/09/24 17:01 Eos # (Auto) 0.1 10^3/uL (0.0-0.8) 02/09/24 17:01 Baso # (Auto) 0.1 10^3/uL (0.0-0.1) 02/09/24 17:01 Nucleated RBC % (auto) 0 % 02/09/24 17: Nucleated RBCs # 0.0 /100WBC 02/09/24 17:01 Sodium 137 mmol/L (136-145) 02/09/24 17:01 Potassium 3.7 mmol/L (3.5-5.1) 02/09/24 17:01 Chloride 102 mmol/L (98-107) 02/09/24 17:01 Carbon Dioxide 24 mmol/L (22-29) 02/09/24 17:01 Anion Gap 14.7 (5-19) 02/09/24 17:01 BUN 19 mg/dL (6-20) 02/09/24 17:01 Creatinine 0.5 mg/dL (0.5-0.9) 02/09/24 17:01 GFR Calculation 148.0 mL/min (90-130) H 02/09/24 17:01 Glucose 91 mg/dL (65-115) 02/09/24 17:01 Calculated Osmolality 286 mOsm/kg (285-295) 02/09/24 17:01 Calcium 8.6 mg/dL (8.5-10.5) 02/09/24 17:01 Total Bilirubin 0.8 mg/dL (0.15-1.2) 02/09/24 17:01 AST 16 U/L (0-32) 02/09/24 17:01 ALT 12 U/L (0-33) 02/09/24 17:01 Alkaline Phosphatase 53 U/L (35-105) 02/09/24 17:01 Total Protein 6.9 g/dL (6.6-8.7) 02/09/24 17:01 Albumin 4.4 g/dL (3.5-5.2) 02/09/24 17:01 Globulin 2.5 g/dL (1.3-4.6) 02/09/24 17:01 HCG, Qual Positive (Negative) H 02/09/24 17:01 Ser , Semi-Qnt 156.10 mIU/mL 02/09/24 17:01 Urine Color Yellow (Yellow) 02/09/24 19:12 Urine Appearance Clear (CLEAR) 02/09/24 19:12 Urine pH 5.5 (5-7) 02/09/24 19:12 Ur Specific [place] 1.031 (1.005-1.030) H 02/09/24 19:12 Urine Protein Negative (Negative) 02/09/24 19:12 Urine Glucose (UA) Negative (Normal) 02/09/24 19:12 Urine Ketones Negative (Negative) 02/09/24 19:12 Urine Blood Negative (Negative) 02/09/24 19:12 Urine Nitrate Negative (Negative) 02/09/24 19:12 Urine Bilirubin Negative (Negative) 02/09/24 19:12 Urine Urobilinogen 1.0 mg/dL (Negative) 02/09/24 19:12 Ur Leukocyte Esterase Negative (Negative) 02/09/24 19:12 Urine RBC 0-2 /hpf (0-2) 02/09/24 19:12 Urine WBC 0-5 /hpf (0-5) 02/09/24 19:12 Ur Squamous Epith Cells 0-5 /hpf (0-5) 02/09/24 19:12 Amorphous Sediment Not Reportable 02/09/24 19:12 Urine Bacteria 1+ /hpf (NONE) H 02/09/24 19:12 Hyaline Casts 2.05 /lpf 02/09/24 19:12 XR interpretation done by ED provider, pending radiology final review Discharge Plan Discharge Patient Disposition: Home Clinical Impression: Abdominal pain affecting Condition: Stable Prescriptions: No Action No Known Home Medications Discharge Orders: Discharge ED (Routine); Ordered 02/09/24 Ordered By: Zander Holden Referrals: Marialuisa Talavera MD [Primary Care Provider] - Discharge Diet: Usual diet Discharge Activity: Increase activity as tolerated Patient Instructions: Abdominal Pain in (ED), Opioid Safety, Pain Management Activity Restrictions/Additional Instructions: Please follow with your primary care provider for repeat serum hCG levels in the next 3 to 4 days. Thank you for choosing [facility] for your healthcare needs today. Please realize this is an emergency room and that we are providing you with a medical screening exam and this may not be complete and all inclusive of all the testing and or work up that you may need to determine your ailment or severity of your illness. You have been screened and evaluated and felt safe for discharge. Health conditions do change or evolve sometimes and as such it is important that you follow up with your Primary Doctor to be re checked, 3-5 days is a general good time frame for follow up. You are always welcome to return to the ED for re assessment if your symptoms are worsening or you have new concerns Coding Level of Care Code ED Refrigerator Room Clerk for Sj Landin
[2024-02-09 23:28] VITALS: BP 112/63; PULSE 82; RESP 16; O2SAT 96
== END 2024-02-09 23:29 | disposition home or self-care (01) ==
PROVIDERS: Emergency Medicine; Emergency Provider Emergency Medicine; PCP Family Medicine
DX: O26.899 Other specified pregnancy related conditions, unspecified trimester (principal)
CPT/HCPCS: 36415; 76801; 76817; 80053; 81001; 84702; 84703; 85025; 99284

== ENCOUNTER 2024-02-16 08:59 | Outpatient (CLI) | payer MEDICAID, SELFPAY ==
[2024-02-16 09:13] LABS: Basophils % 0.4 %; Eosinophils # 0.1 10^3/uL (0.0-0.8); Eosinophils % 0.9 %; Hematocrit 34.7 % (36-47); Lymphocytes % 25.4 %; Mean Corpuscular HGB Conc 34.9 g/dL (30-55); Mean Corpuscular Hemoglobin 30.3 pg (27-33); Mean Platelet Volume 8.6 fL (7.4-10.4); Monocytes % 12.8 %; Neutrophils # 4.76 10^3/uL (1.8-7.7); Neutrophils % 60.1 %; Nucleated Red Blood Cells % 0 %; Platelet Count 174 10^3/cmm (157-399); Red Blood Count 3.99 10^6/uL (3.85-5.65); Red Cell Distribution Width 12.2 % (12.1-15.1); White Blood Count 7.91 10^3/uL (3.29-11.43)
[2024-02-16 09:42] LABS: Alanine Aminotransferase 10 U/L (0-33); Albumin Level 4.1 g/dL (3.5-5.2); Alkaline Phosphatase 51 U/L (35-105); Anion Gap 13.6 (5-19); Aspartate Amino Transferase 14 U/L (0-32); Blood Urea Nitrogen 16 mg/dL (6-20); Carbon Dioxide 23 mmol/L (22-29); Chloride 101 mmol/L (98-107); Globulin 2.4 g/dL (1.3-4.6); Glucose 94 mg/dL (65-115); Osmolality Calculated 279 mOsm/kg (285-295); Potassium 3.6 mmol/L (3.5-5.1); Sodium 134 mmol/L (136-145); Total Bilirubin 0.8 mg/dL (0.15-1.2); Total Protein 6.5 g/dL (6.6-8.7)
--- NOTE | 2024-02-16 10:00 | US_ITS ---
WS: [id number] EARLY OBSTETRICAL ULTRASOUND (<14 WEEKS). HISTORY: O20.0 - Threatened COMPARISON: 02/09/2024 Transvaginal imaging is submitted. The cervix is closed. Mild thickening of the endometrium to 1.3 cm . There is a very tiny fluid collection along the endometrial canal. The exact location cannot be det ermined on the images submitted due to insufficient labeling. This fluid collection along the central canal measures 0.5 x 0.4 x 0.5 cm. There is no pole or cardiac activity identified. This colle ction is more well formed and circular than on the prior study. This could potentially represent a ve ry early intrauterine gestation. Small amount of free fluid in the cul-de-sac. Normal blood flow to each ovary. RIGHT ovary contains a cystic mass which is probably a corpus luteum measuring 1.4 x 1.5 x 1.6 cm. US/US OB transvaginal [id number] IMPRESSION: 1. Cannot confirm intrauterine gestation. There is a small circular fluid milena ection in the endometrial canal. Mean sac diameter consistent with an age of 5 weeks and 1 day if this is a gestational sac. There is no pole or crown-r ump length at this time. Recommend 1 week interval follow-up by transvaginal ul trasound. 2. Without confirming an intrauterine gestation ectopic is still not excluded. Correlate with changing beta hCG levels would be helpful. 3. No free fluid.
== END 2024-02-16 09:00 | disposition home or self-care (01) ==
LOC: RAD 09:00
PROVIDERS: PCP Family Medicine; Visit Provider Nurse Practitioner Women's Health
DX: O20.0 Threatened abortion (principal); O26.899 Other specified pregnancy related conditions, unspecified trimester; R10.9 Unspecified abdominal pain
CPT/HCPCS: 36415; 76817; 80053; 84315; 84702; 85025; 87086

== ENCOUNTER → 2024-02-19 13:28 | Outpatient (BNVA) | payer MEDICAID, SELFPAY | PROVIDERS: PCP Family Medicine; Visit Provider Nurse Practitioner Women's Health | DX: O20.0 Threatened abortion (principal); O26.899 Other specified pregnancy related conditions, unspecified trimester; R10.9 Unspecified abdominal pain | CPT/HCPCS: 84702 ==

== ENCOUNTER → 2024-02-27 08:32 | Outpatient (BNVA) | payer MEDICAID, SELFPAY | PROVIDERS: PCP Family Medicine; Visit Provider Nurse Practitioner Women's Health | DX: Z36.87 Encounter for antenatal screening for uncertain dates (principal) | CPT/HCPCS: 76817 ==

== ENCOUNTER 2024-05-15 13:52 | Observation (INO) | payer MEDICAID, SELFPAY ==
[2024-05-15] VITALS (40 sets, daily range): BP systolic 88–162; BP diastolic 50–110; PULSE 67–114; RESP 16–17; O2SAT 90–100; BMI 22.2
--- NOTE | 2024-05-15 13:54 | USR_ITS ---
PROCEDURE INFORMATION: Exam: US , Limited Exam date and time: 05/15/2024 2:18 PM Age: 28 years old Clinical indication: Screening exam; Routine US, uterus; Additional info: Confirm demise TECHNIQUE: Imaging protocol: Real-time ultrasound of the maternal uterus with image documentation. Exam focused on the clinical indication. COMPARISON: US OB transvaginal [id number] 02/27/2024 8:35 AM FINDINGS: Gestation: There is an intrauterine fetus. No cardiac activity could be identified. US/US OB limited [id number] IMPRESSION: No cardiac activity identified.
[2024-05-15] MEDS: hyDROXYzine 25 mg Capsule 50 MG PO (15:23)
[2024-05-15] MEDS: miSOPROStol 100 mcg tablet 200 MCG VAGINAL ×2 (15:24→19:40)
[2024-05-15 15:58] LABS: Basophils # 0.1 10^3/uL (0.0-0.1); Basophils % 0.5 %; Eosinophils # 0.2 10^3/uL (0.0-0.8); Eosinophils % 2.4 %; Hematocrit 40.2 % (36-47); Lymphocytes # 2.4 10^3/uL (0.8-4.8); Lymphocytes % 25.6 %; Mean Corpuscular HGB Conc 34.6 g/dL (30-55); Mean Corpuscular Hemoglobin 30.3 pg (27-33); Mean Corpuscular Volume 87.8 fl (85-98); Mean Platelet Volume 9.4 fL (7.4-10.4); Monocytes % 10.3 %; Neutrophils # 5.78 10^3/uL (1.8-7.7); Neutrophils % 60.6 %; Nucleated Red Blood Cells % 0 %; Platelet Count 170 10^3/cmm (157-399); Red Blood Count 4.58 10^6/uL (3.85-5.65); Red Cell Distribution Width 12.7 % (12.1-15.1); White Blood Count 9.54 10^3/uL (3.29-11.43)
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
[2024-05-15] MEDS: fentaNYL 50 mcg/mL INJ 2mL IVP ×2 (19:21→20:33)
[2024-05-15] MEDS: sodium chloride 0.9% 1,000 ML 999 ML IV (20:45)
--- NOTE | 2024-05-15 21:00 | ANES.PROC ---
Anesthesia Procedures Procedure/Date: 05/15/24 US guided PIV placed at this time by STACIE. ruddy MERIDA.
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
[2024-05-15] MEDS: ROPivacaine syringe 100 MG/50 ML SYRINGE 10 MG EPIDURAL (21:39)
--- NOTE | 2024-05-15 21:39 | ANES.PROC ---
Anesthesia Procedures Procedure/Date: 05/15/24 Epidural: Time Out Performed: Yes Consents Signed: Procedure Consent Consent: from patient, risks and benefits reviewed and patient agrees to proceed Lumbar Level: L3-L4 Epidural position: sitting Epidural procedure: sterile prep of area, 1% lidocaine to numb the area, 18 g needle, negative for paresthesia passed, neg for paresthesia, test dose given, 1.5% xylocaine 1:200k epi, placed PCEA, no systemic response, sterile dressing applied and 0.2% Ropiavacaine @ mls/hr (10) Additional Comments: ARAMIS at 6, taped at 12 at skin. negative heme/CSF aspiration.
[2024-05-15] MEDS: dextrose 5%-lactated ringers 1,000 ML 125 ML IV (23:08)
[2024-05-16] VITALS (30 sets, daily range): BP systolic 85–122; BP diastolic 44–78; PULSE 64–96; RESP 16–17; TEMP 36.8; O2SAT 98
[2024-05-16] MEDS: ROPivacaine syringe 100 MG/50 ML SYRINGE 10 MG EPIDURAL ×2 (00:33→04:00)
[2024-05-16] MEDS: ondansetron 2 mg/ML SDV 2 mL 4 MG IVP (00:59)
[2024-05-16] MEDS: hyDROXYzine 25 mg Capsule 50 MG PO ×2 (01:00→10:24)
--- NOTE | 2024-05-16 04:16 | PC.NURSE ---
0416 [facility] has been notified, demise is not a candidate for donation.
[2024-05-16] MEDS: fentaNYL 50 mcg/mL INJ 2mL IVP (04:35)
--- NOTE | 2024-05-16 04:35 | PC.NURSE ---
[facility] Body may be released as per Mother's wishes.
[2024-05-16] MEDS: oxytocin 30 UNIT/500 ML BAG 600 UNIT IV (04:41)
--- NOTE | 2024-05-16 05:28 | P.PCNOB_ITS ---
Delivery Note: Date of delivery: May 16, 2024 Pre-delivery diagnoses: 28-year-old 4 para 2-0-1-2 femal e at 18 weeks estimated gestational age with demise Post-delivery diagnoses: Status post delivery of nonviable fetus less than 20 weeks Procedure: Delivery of nonviable fetus Delivering Physician: Miguel Denney Estimated blood loss (mL): 100 Pre-Delivery Course: The patient presented to my office yesterday complaining of bleeding and cramping. Ultrasound demonstrated no heart tones. The patient was then brought to the hospital for induction and delivery of the nonviable fetus. The patient was placed on 200 mcg of Cytotec every 4 hours. An epidural was placed. Delivery: The delivery of the infant occurred spontaneously. When the nurse did a routine check she noticed that the had been delivered. The infant appeared much smaller than it stated gestational age. Otherwise no abnormalities are noted. The car was cut. He had the was weighed and found to be 15 g. The sex of the was unclear but based on genetic testing done in the office the was a girl. While attempting to deliver the placenta, the cord, which was approximately 3 mm in diameter, broke. Fortunately, the placenta was at the cervical os. Using ring forceps I was able to tease the placenta out of the uterus. While I could not definitively determine if we were able to deliver the complete placenta, it did come out in 1 piece. Post-Delivery Status: Good History History History 4 Term 2 0 Miscarriages/Ectopic 2 Living Children 2 A&P Assessment and plan (1) Miscarriage at 8 to 28 weeks gestation: We will monitor the patient for bleeding. When we are comfortable the bleeding has adequately resolved, and the patient is ready, we will discharge her home. We discussed possible complications including bleeding, retained products of conception. PDMP PDMP Reviewed: Not Reviewed Coding Level of Care Code Acute Code for Chg Fwd Diagnoses Miscarriage at 8 to 28 weeks gestation O03.9
--- NOTE | 2024-05-16 05:35 | PC.NURSE ---
0350- This RN Driss Larson RN woke up the patient for a cervical exam, in order to see dilation for next dose of cytotec. This RN observed that the baby had delivered (18.1 week demise) in the bed while the patient was sleeping. There was also a moderate amount of blood noted in the bed at this time. Mac Long RN is with the patient at this time explaining what has occurred. Placenta had not delivered. 0357- This RN placed call to Dr. Denney at this time to update on patient status. Orders at this time for Driss Larson RN to clamp and cut the cord and await physician arrival for delivery of placenta. 0429- Dr. Denney arrived to the room. 0440- Placenta delivered via manual removal with ring forceps.
--- NOTE | 2024-05-16 05:39 | PM.OBGYDC ---
Discharge Providers [employer]CTION [employer] HELPER Date of Admission: 05/15/24 18:24 Date of Discharge: 05/16/24 Attending Provider at Admission: Miguel Denney MD Attending Provider at Discharge: Miguel Denney MD Primary Care Provider: Marialuisa Talavera MD Diagnoses at Discharge Discharge Diagnosis (1) Miscarriage at 8 to 28 weeks gestation: Status: Acute Reason for Visit Reason for Visit: Demise Hospital Course Hospital Course The patient presented to the hospital for induction of missed of an 18-week gestational age . She was placed on Cytotec 200 mcg every 4 hours. An epidural was placed. The was delivered. The placenta was delivered with the assistance of ring forceps. Her bleeding was within normal limits. Information Peripartum Data: Infant Delivery Method: Vaginal Physical Exam Narrative: The patient is alert. She appears comfortable. Her heart has a regular rate and rhythm Lungs are clear to auscultation bilaterally. Her fundus is firm and below the umbilicus. Urinary Catheter Management: Goldstein: Cath Placed During This Visit: yes, but has since been removed by the nurse Reason for Continuing Indwelling Catheter: Decision to DC Catheter Urinary Catheter Date of Insertion: 05/15/24 Urinary Catheter Time of Insertion: 22:45 Date Urinary Catheter Removed: 05/16/24 Time Urinary Catheter Discontinued: 04:32 History History History 4 Term 2 0 Miscarriages/Ectopic 2 Living Children 2 Discharge Data Studies Completed and Pending Pending at discharge Category Date Time Status US OB limited 40823 Stat Ultrasound 05/15/24 13:54 Taken Laboratory Results WBC 9.54 10^3/uL (3.29-11.43) 05/15/24 15:10 RBC 4.58 10^6/uL (3.85-5.65) 05/15/24 15:10 Hgb 13.90 g/dL (11.27-16.99) 05/15/24 15:10 Hct 40.2 % (36-47) 05/15/24 15:10 MCV 87.8 fl (85-98) 05/15/24 15:10 MCH 30.3 pg (27-33) 05/15/24 15:10 MCHC 34.6 g/dL (30-55) 05/15/24 15:10 RDW 12.7 % (12.1-15.1) 05/15/24 15:10 Plt Count 170 10^3/cmm (157-399) 05/15/24 15:10 MPV 9.4 fL (7.4-10.4) 05/15/24 15:10 Neut % (Auto) 60.6 % 05/15/24 15:10 Lymph % (Auto) 25.6 % 05/15/24 15:10 [place] % (Auto) 10.3 % 05/15/24 15:10 Eos % (Auto) 2.4 % 05/15/24 15:10 Baso % (Auto) 0.5 % 05/15/24 15:10 Neut # (Auto) 5.78 10^3/uL (1.8-7.7) 05/15/24 15:10 Lymph # (Auto) 2.4 10^3/uL (0.8-4.8) 05/15/24 15:10 [place] # (Auto) 1.0 10^3/uL (0.2-0.9) H 05/15/24 15:10 Eos # (Auto) 0.2 10^3/uL (0.0-0.8) 05/15/24 15:10 Baso # (Auto) 0.1 10^3/uL (0.0-0.1) 05/15/24 15:10 Nucleated RBC % (auto) 0 % 05/15/24 15:10 Nucleated RBCs # 0.0 /100WBC 05/15/24 15:10 Blood Type A Positive 05/15/24 15:10 Rho(D) Type Rh positive 05/15/24 15:10 Antibody Screen Negative 05/15/24 15:10 Vitals Last Vital Signs Pulse 66 05/16/24 05:30 Resp 16 05/16/24 04:35 BP 104/55 05/16/24 05:30 Pulse Ox 99 05/15/24 22:28 O2 Del Method Nasal Cannula 05/15/24 17:40 Results Labs OB ([facility]): Obstetrics US 05/15/24 Blood Type A Positive 05/15/24 Antibody Screen Negative 05/15/24 Hct 40.2 % (36-47) 05/15/24 Hgb 13.90 g/dL (11.27-16.99) 05/15/24 Rho(D) Type Rh positive 05/15/24 Plt Count 170 10^3/cmm (157-399) 05/15/24 Ser , Semi-Qnt 5407.00 mIU/mL 02/19/24 HCG, Qual Positive (Negative) H 02/09/24 Micro Urine Specimen 02/16/24 Discharge Plan Discharge Patient Disposition: Home Condition: Stable Prescriptions: New clonazepam [Klonopin] 0.5 mg tablet 0.5 mg PO Q12H PRN (Reason: anxiety) Qty: 10 0RF ibuprofen 800 mg tablet 800 mg PO Q8H PRN (Reason: pain) Qty: 20 0RF Discharge Orders: Discharge Order (Routine); Ordered 05/16/24 Ordered By: Miguel Denney Referrals: Miguel Denney MD [Physician] - 4-7 days (Please make appointment first thing in the morning so she can get in and out before the women and women with babies start showing up) Discharge Diet: Usual diet Discharge Activity: Limit activity as instructed Patient Instructions: Opioid Safety 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
[2024-05-16] MEDS: docusate sodium 100 mg Capsule PO (09:29)
[2024-05-16] MEDS: PRENATAL VIT NO.130/IRON/FOLIC 1 EACH TABLET PO (09:29)
[2024-05-16] MEDS: ibuprofen 800 mg tablet PO (09:30)
--- NOTE | 2024-05-16 10:29 | ANE.PACU2 ---
Inpatient post-anesthesia follow up: Airway intact: Yes Vital signs: Temperature 98.3 F Pulse Rate 85 Respiratory Rate 17 Blood Pressure 107/67 Pulse Oximetry 98 Oxygen Delivery Me thod Nasal Cannula Oxygen Flow Rate Fraction of Inspir ed Oxygen Hydration adequate: Yes Nausea and vomiting: No Pain level: 1 Mental status: Baseline Epidural Start/End: Epidural Start Date: 05/15/24 Epidural Start Time: 21:15 Epidural End Date: 05/16/24 Epidural End Time: 05:26
== END 2024-05-16 12:42 | disposition home or self-care (01) ==
LOC: OBGYN 13:52 → OPOB 05-16 07:19 → OBGYN 05-16 07:19
PROVIDERS: Admitting Provider Family Medicine; PCP Family Medicine; Visit Provider Family Medicine
DX: O36.4XX0 Maternal care for intrauterine death, not applicable or unspecified (principal); Z3A.18 18 weeks gestation of pregnancy; Z37.1 Single stillbirth
CPT/HCPCS: 36415; 51702; 59409; 76815; 85025; 86850; 86900; 88305; 96374; 96376; 99211; G0378; J2405; J2590; J2795; J3010; J7030; J7121